=== PATIENT | female | born 1990 | race Caucasian/White ===

== ENCOUNTER 2020-06-06 16:28 | Emergency (ER) | payer OTHER, SELFPAY ==
--- NOTE | ~2020-06-06 | CT_ITS ---
EXAMINATION: CT abdomen pelvis w con EXAM DATE: 06/06/2020 21:56 INDICATION: Bilateral low abdominal pain for 3 days. TECHNIQUE: Spiral CT of the abdomen and pelvis was performed following intravenous injection of 100 m L Omnipaque 350. Axial, coronal and sagittal images were reviewed. The dose-length product (DLP) fo r this examination was 735.81 mGy-cm. The exposure was tailored according to patient size (auto mA e xposure control), and iterative reconstruction (ASIR) was used as additional dose reduction technique . There is no prior study for comparison. FINDINGS: Left adnexal region has somewhat serpiginous appearing fluid density region, possible hydro salpinx or pyosalpinx. Overall this left adnexal region measures about 3.2 x 4.7 cm. No adjacent fat stranding. Please clinically correlate. Consider follow-up nonemergent pelvic sonogram. Uterus is unr emarkable. The liver, spleen, adrenal glands and pancreas are unremarkable. Gallbladder is unremarkable. No bi liary obstruction. Portal and splenic veins are patent. Kidneys enhance symmetrically. There is no hydronephrosis. The bladder is unremarkable. There is no retroperitoneal or pelvic lymphadenopa thy. The appendix is normal. The stomach and small bowel are unremarkable. There is expected amount of c olonic stool. No free intraperitoneal gas. The heart is normal in size. There are no pericardial or pleural effusions. The lung bases are unremarkable. There are no osteoblastic or osteolytic les ions identified. IMPRESSION: 1. Serpiginous fluid density left adnexal region, possible hydrosalpinx or pyosalpinx if there is ce rvical motion tenderness. Clinical correlation. Consider follow-up nonemergent pelvic sonogram. 2. Otherwise unremarkable CT abdomen pelvis exam. Reviewed, dictated and finalized at location A. IMPRESSION: 1. Serpiginous fluid density left adnexal region, possible hydrosalpinx or pyo salpinx if there is cervical motion tenderness. Clinical correlation. Consider follow-up nonemergent pelvic sonogram. 2. Otherwise unremarkable CT abdomen pelvis exam.
[2020-06-06 17:03] VITALS: BP 134/87; PULSE 106; RESP 17; TEMP 35.8; O2SAT 97
[2020-06-06 17:27] LABS: Basophils Percent Auto 0.1 % (0.2-1.2); Eosinophils Absolute Auto 0.1 K/mm3 (0-0.3); Eosinophils Percent Auto 0.7 % (0-4.4); Hematocrit 38.1 % (37.0-47.0); Hemoglobin 13.1 g/dL (12.0-15.0); Immature Granulocyte Absolute 0.05 K/mm3 (0.00-0.031); Immature Granulocyte Percent A 0.4 % (0-0.5); Lymphocytes Absolute Auto 2.58 K/mm3 (0.9-3.2); Lymphocytes Percent Auto 18.6 % (18.3-44.2); Mean Corpuscular HGB Conc 34.4 g/dl (32-36); Mean Corpuscular Hemoglobin 28.9 pg (26-34); Mean Corpuscular Volume 84.1 fl (80-100); Mean Platelet Volume 10.2 fl (7.4-10.4); Monocytes Absolute Auto 0.5 K/mm3 (0.1-0.6); Monocytes Percent Auto 3.6 % (2.6-8.5); Neutrophils Absolute Auto 10.6 K/mm3 (1.3-6.7); Neutrophils Percent Auto 76.6 % (45.5-73.1); Platelet Count Result 318 k/mm3 (150-375); Red Blood Count 4.53 M/mm3 (4.2-5.4); Red Cell Distribution Width 12.5 % (11.5-14.5); White Blood Count 13.9 K/mm3 (4.5-10.0)
[2020-06-06 17:31] LABS: Add Urine Microscopic? YES; Appearance Urine Cloudy (Clear); Bacteria Urine Trace /hpf; Bilirubin Urine Negative (Negative); Blood Urine Negative (Negative); Color Urine Yellow (Yellow); Glucose Urine UA Negative (Negative); Ketones Urine Negative (Negative); Leukocyte Esterase Ur 1+ LEU/UL (Negative); Mucus Urine Moderate /lpf; Nitrate Urine Negative (Negative); Protein Urine 1+ mg/dL (Negative); Specific Grav Ur 1.024 (1.001-1.035); Squamous Epithelial Cell Urine Many /hpf (Few); Transitional Epi Cells Urine Rare /hpf (None Seen); Urobilinogen Urine Negative mg/dL (<2.0); WBC Urine 16-20 /hpf
[2020-06-06 17:40] LABS: Alanine Aminotransferase 9 U/L (4-35); Albumin Level 4.2 g/dL (3.5-5.1); Alkaline Phosphatase 82 U/L (38-126); Anion Gap 7 mmol/L (8-16); Aspartate Amino Transferase 17 U/L (14-36); Bilirubin,Total 0.7 mg/dL (0.2-1.3); Blood Urea Nitrogen 11 mg/dL (7-17); Calcium 9.4 mg/dL (8.4-10.2); Carbon Dioxide 23 mmol/L (22-30); Chloride 106 mmol/L (98-107); Estimated CRCL calculation 102 ml/min; Estimated Glomerular Filt Rate > 60; Glucose 90 mg/dL (65-105); Lipase 23 U/L (23-300); Sodium 136 mmol/L (137-145)
--- NOTE | 2020-06-06 21:14 | ED.GENADULT ---
HPI - General Adult General Chief complaint: Abdominal Pain Stated complaint: pressure and cramping in abd Time Seen by Provider: 06/06/20 20:23 History of Present Illness HPI narrative: Patient is a 30-year-old female who presents emerged part with chief complaint of abdominal pain. Patient reports for the last 3 days has had pain throughout her abdomen states it is nonlocalizing states that it is aching and worse with movement. Patient denies vaginal discharge denies vomiting denies diarrhea states that her she just recently finished her period Related Data Home Medications Medication Instructions Recorded Confirmed venlafaxine mg 06/06/20 Allergies Allergy/AdvReac Type Severity Reaction Status Date / Time No Known Allergies Allergy Unknown Unverified 06/24/14 18:27 Review of Systems Review of Systems: Narrative: A 10 system review of systems was completed on the patient and is negative except for what is stated in the HPI. Nursing and ancillary documentation was reviewed. PMFSH Social History Social History Gender identity (if verbalized by the patient): Female Comments Patient denies past medical history Social history the patient reports that she smokes cigarettes Exam Narrative: Exam Narrative: GENERAL: Well-appearing, well-nourished, and in no acute distress. HEAD: Normocephalic, atraumatic. EYES: PERRLA and EOMI. ENT: Nares clear, no rhinorrhea or epistaxis. Mucous membranes moist. NECK: Supple. CHEST: Clear to auscultation. No respiratory distress. HEART: Regular rate and rhythm. No murmur heard. Normal peripheral pulses. ABDOMEN: Soft, nontender, nondistended, normal active bowel sounds. EXTREMITIES: Normal range of motion. No edema. SKIN: Warm, dry, no rash. NEURO: No focal deficits. Alert and oriented x3. PSYCH: Normal mood and affect. Course Vital Signs Vital signs: Vital Signs Temperature 35.8 C L 06/06/20 17:03 Pulse Rate 106 H 06/06/20 17:03 Respiratory Rate 17 06/06/20 17:03 Blood Pressure 134/87 06/06/20 17:03 Pulse Oximetry 97 06/06/20 17:03 Temperature 35.8 C L 06/06/20 17:03 Pulse Rate 100 06/06/20 22:22 Respiratory Rate 18 06/06/20 22:22 Blood Pressure 113/75 06/06/20 22:22 Pulse Oximetry 98 06/06/20 22:22 Medical Decision Making Vital Signs Vital Signs: Vital Signs Temperature 35.8 C L 06/06/20 17:03 Pulse Rate 106 H 06/06/20 17:03 Respiratory Rate 17 06/06/20 17:03 Blood Pressure 134/87 06/06/20 17:03 Pulse Oximetry 97 06/06/20 17:03 Temperature 35.8 C L 06/06/20 17:03 Pulse Rate 100 06/06/20 22:22 Respiratory Rate 18 06/06/20 22:22 Blood Pressure 113/75 06/06/20 22:22 Pulse Oximetry 98 06/06/20 22:22 Lab Data Result diagrams: 06/06/20 17:08 06/06/20 17:08 Labs: Lab Results 06/06/20 06/06/20 06/06/20 Range/Units 17:08 17:08 17:08 WBC 13.9 H (4.5-10.0) K/mm3 RBC 4.53 (4.2-5.4) M/mm3 Hgb 13.1 (12.0-15.0) g/dL Hct 38.1 (37.0-47.0) % MCV 84.1 (80-100) fl MCH 28.9 (26-34) pg MCHC 34.4 (32-36) g/dl RDW 12.5 (11.5-14.5) % Plt Count 318 (150-375) k/mm3 MPV 10.2 (7.4-10.4) fl Immature Gran % (Auto) 0.4 (0-0.5) % Neut % (Auto) 76.6 H (45.5-73.1) % Lymph % (Auto) 18.6 (18.3-44.2) % Trigg % (Auto) 3.6 (2.6-8.5) % Eos % (Auto) 0.7 (0-4.4) % Baso % (Auto) 0.1 L (0.2-1.2) % Lymph # (Auto) 2.58 (0.9-3.2) K/mm3 Trigg # (Auto) 0.5 (0.1-0.6) K/mm3 Eos # (Auto) 0.1 (0-0.3) K/mm3 Baso # (Auto) 0.0 (0.0-0.1) K/mm3 Abs Immat Gran (auto) 0.05 H (0.00-0.031) K/mm3 Absolute Neuts (auto) 10.6 H (1.3-6.7) K/mm3 Absolute Nucleated RBC 0.0 (0.0-0.012) K/mm3 Nucleated RBC % 0.0 (0.0-0.2) % Sodium 136 L (137-145) mmol/L Potassium 4.0 (3.4-5.0) mmol/L Chloride 106 (98-107) mmol/L Carbon Dioxide 23 (22-30) mmol/L Anion Gap 7 L (8-16
[2020-06-06] MEDS: ONDANSETRON INJ 4 MG/2 ML VIAL IV PUSH (21:45)
[2020-06-06] MEDS: SODIUM CHLORIDE 0.9% IV 1,000 ML 999 ML IV CONT (21:45)
[2020-06-06 22:22] VITALS: BP 113/75; PULSE 100; RESP 18; O2SAT 98
== END 2020-06-06 23:00 | disposition home or self-care (01) ==
PROVIDERS: Emergency Medicine; Emergency Provider Emergency Medicine; PCP Family Medicine
DX: N30.00 Acute cystitis without hematuria (principal); F17.210 Nicotine dependence, cigarettes, uncomplicated
CPT/HCPCS: 36415; 74177; 80053; 81001; 81025; 83690; 85025; 87086; 87088; 87491; 87591; 96361; 96365; 96375; 99284; J0696; J2405; J7030; Q9967

== ENCOUNTER 2020-11-28 17:08 | Inpatient (IN) | payer OTHER, SELFPAY ==
--- NOTE | ~2020-11-28 | XR_ITS ---
XR abdomen obstructive series 11/29/2020 09:19 Indication: Possible small bowel obstruction Procedure: Supine and upright views of the abdomen Comparison: CT dated 11/28/2020 Findings: Nonobstructive bowel gas pattern. No free air. No abnormal calcifications. There is left ba silar atelectasis. Impression: 1: Nonobstructive bowel gas pattern. 2: Left basilar atelectasis. Reviewed, dictated and finalized at location A. Impression: 1: Nonobstructive bowel gas pattern. 2: Left basilar atelectasis.
--- NOTE | ~2020-11-28 | US_ITS ---
EXAMINATION: US pelvic complete w TV DATE: 11/29/2020 12:00 INDICATION: Lower abdominal pain TECHNIQUE: Multiple transabdominal and endovaginal sonographic images of the pelvis were obtained. COMPARISON: CT, 11/28/2020 FINDINGS: The uterus measures 7.4 x 4.7 x 4.5 cm. The endometrial complex measures 4 mm. The right ov juan measures 3.5 x 2.2 x 1.8 cm. The left ovary measures 2.6 x 1.5 x 2.2 cm. There is normal vascular flow in the ovaries. There are bilateral adnexal fluid collections. There is also fluid in the cul-d e-sac. IMPRESSION: 1. Cul-de-sac and bilateral adnexal fluid collections which could reflect small pelvic abscesses. Reviewed, dictated and finalized at location A.
--- NOTE | ~2020-11-28 | US_ITS ---
EXAMINATION: US abdomen limited DATE: 11/29/2020 11:59 INDICATION: Abdominal pain TECHNIQUE: Multiple grayscale and Doppler ultrasound images of the abdomen were obtained. COMPARISON: CT from yesterday FINDINGS: The head, body, and tail of the pancreas are normal. The liver is normal with normal echoge nicity and echotexture. No surface nodularity. Normal hepatopetal flow in the main portal vein. There is sludge in the nondistended gallbladder. No gallbladder wall thickening or pericholecystic fluid i s identified. The normal common bile duct measures 2 mm. There was no sonographic Paula sign. IMPRESSION: 1. Gallbladder sludge. Reviewed, dictated and finalized at location A. IMPRESSION: 1. Gallbladder sludge.
--- NOTE | ~2020-11-28 | CT_ITS ---
EXAMINATION: CT abdomen pelvis w con DATE: 11/28/2020 21:57 INDICATION: Left-sided abdominal pain, possible small bowel obstruction TECHNIQUE: Computed tomography (CT) of the abdomen and pelvis was performed with 100 cc Omnipaque 350 intravenous contrast. Automated exposure control and iterative reconstruction technique were employe d. Exam dose: 613.96 mGy-cm total exam DLP. COMPARISON: 06/06/2020 CT abdomen pelvis FINDINGS: Prominent multifocal discoid atelectasis is noted at the lung bases. Normal heart size. No pericardial or pleural effusion. There is some focal hepatic steatosis along the anterolateral aspect of the fissure for the ligamentu m teres. No hepatic space-occupying mass lesion. No bile duct dilatation. There is high density bile, sludge or stones within the dependent gallbladder. No gallbladder wall th ickening or pericholecystic fluid or fat stranding. Normal splenic size. No pancreatic mass lesion, calcification or ductal dilatation. Normal morphology of the adrenal glands. No renal mass lesion, urinary tract calculus or hydroureteronephrosis. Normal caliber of the abdominal aorta. There are shotty mesenteric, periaortic, aortocaval and iliac lymph nodes, likely reactive. No intraperitoneal or retroperitoneal or pelvic mass lesion or adenopat hy is noted otherwise. There is mild nonspecific fluid collection in the paracolic gutters, Morison's pouch and mesentery, a s well as adnexal areas and cul-de-sac. There is fat stranding of the mesentery. The proximal small bowel measures up to 2.6 mm caliber. There is thickening of the wall of multiple s mall bowel segments, with fluid distended small bowel and small bowel air-fluid levels. The appendix is not clearly delineated and may measure up to almost 9 mm diameter. Ruptured appendix is not excluded. Included skeletal structures are unremarkable. IMPRESSION: Nonspecific fluid collections in the hepatorenal space (Morison's pouch), pericolic gutt ers, adnexal areas and pelvic cul-de-sac There are probable reactive mesenteric, periaortic, aortocaval, iliac lymph nodes Diffusion diagnosis includes ruptured appendix, ruptured cyst, ruptured ectopic, inflammatory bowel d isease. Reviewed, dictated and finalized at Location A. Reviewed, dictated and finalized at location A. IMPRESSION: Nonspecific fluid collections in the hepatorenal space (Morison's pouch), pericolic gutters, adnexal areas and pelvic cul-de-sac There are probable reactive mesenteric, periaortic, aortocaval, iliac lymph nod es Diffusion diagnosis includes ruptured appendix, ruptured cyst, ruptured ectopic , inflammatory bowel disease.
[2020-11-28 17:16] VITALS: BP 120/83; PULSE 113; RESP 16; TEMP 35.8; O2SAT 99
[2020-11-28 17:35] LABS: Basophils Percent Auto 0.1 % (0.2-1.2); Eosinophils Absolute Auto 0.1 K/mm3 (0-0.3); Eosinophils Percent Auto 0.3 % (0-4.4); Hematocrit 38.6 % (37.0-47.0); Hemoglobin 12.8 g/dL (12.0-15.0); Immature Granulocyte Absolute 0.06 K/mm3 (0.00-0.031); Immature Granulocyte Percent A 0.4 % (0-0.5); Lymphocytes Absolute Auto 2.01 K/mm3 (0.9-3.2); Lymphocytes Percent Auto 13.7 % (18.3-44.2); Mean Corpuscular HGB Conc 33.2 g/dl (32-36); Mean Corpuscular Hemoglobin 29.4 pg (26-34); Mean Corpuscular Volume 88.5 fl (80-100); Mean Platelet Volume 10.3 fl (7.4-10.4); Monocytes Absolute Auto 0.5 K/mm3 (0.1-0.6); Monocytes Percent Auto 3.3 % (2.6-8.5); Neutrophils Absolute Auto 12.1 K/mm3 (1.3-6.7); Neutrophils Percent Auto 82.2 % (45.5-73.1); Platelet Count Result 319 k/mm3 (150-375); Red Blood Count 4.36 M/mm3 (4.2-5.4); Red Cell Distribution Width 13.1 % (11.5-14.5); White Blood Count 14.7 K/mm3 (4.5-10.0)
[2020-11-28 17:52] LABS: Add Urine Microscopic? YES; Appearance Urine Cloudy (Clear); Bilirubin Urine 1+ (Negative); Blood Urine 3+ (Negative); Color Urine Yellow (Yellow); Glucose Urine UA Negative (Negative); Ketones Urine 2+ mg/dL (Negative); Leukocyte Esterase Ur 3+ LEU/UL (Negative); Mucus Urine Rare /lpf; Nitrate Urine Negative (Negative); Protein Urine 2+ mg/dL (Negative); Squamous Epithelial Cell Urine Many /hpf (Few); WBC Urine >75 /hpf
[2020-11-28 17:53] LABS: Alanine Aminotransferase 10 U/L (4-35); Albumin Level 3.8 g/dL (3.5-5.1); Alkaline Phosphatase 82 U/L (38-126); Anion Gap 13 mmol/L (8-16); Aspartate Amino Transferase 17 U/L (14-36); Bilirubin,Total 0.5 mg/dL (0.2-1.3); Blood Urea Nitrogen 9 mg/dL (7-17); Carbon Dioxide 21 mmol/L (22-30); Chloride 105 mmol/L (98-107); Estimated CRCL calculation 114 ml/min; Estimated Glomerular Filt Rate > 60; Glucose 90 mg/dL (65-110); Lipase 12 U/L (23-300); Potassium 3.4 mmol/L (3.4-5.0); Sodium 139 mmol/L (137-145)
[2020-11-28 18:06] LABS: Specific Grav Ur 1.032 (1.001-1.035)
[2020-11-28 20:16] VITALS: BP 114/82; PULSE 96; RESP 18; O2SAT 99
--- NOTE | 2020-11-28 20:50 | ED.ABDPAIN ---
HPI - Abdominal Pain General Chief Complaint: Abdominal Pain <Tristen Langford MD - Last Filed: 11/28/20 21:13> Stated Complaint: Abd Pain <Tristen Langford MD - Last Filed: 11/28/20 21:13> Time Seen by Provider: 11/28/20 20:22 <Tristen Langford MD - Last Filed: 11/28/20 21:13> Source: patient <Tristen Langford MD - Last Filed: 11/28/20 21:13> Mode of arrival: ambulatory <Tristen Langford MD - Last Filed: 11/28/20 21:13> History of Present Illness HPI narrative: 30-year-old female She was just discharged from [place] after being admitted a couple days ago for abdominal pain Her understanding is that she had a partial small bowel obstruction and a urinary tract infection She is positive she did not have an NG tube placed She was discharged on Levaquin and Flagyl which she is taking She came here today because she still has nausea and vomiting and some abdominal pain which is more on the left side and does not feel like her stay there did her much good She has had a bowel movement without relief of her symptoms She does not have a fever, she has no blood in her stool or emesis, and she really does not have any urinary symptoms either at this time No history of any prior abdominal operations <Tristen Langford MD - Last Filed: 11/28/20 21:13> Related Data Home Medications: Home Medications Medication Instructions Recorded Confirmed venlafaxine mg 06/06/20 <Tristen Langford MD - Last Filed: 11/28/20 21:13> Allergies/Adverse Reactions: Allergies Allergy/AdvReac Type Severity Reaction Status Date / Time No Known Allergies Allergy Unknown Unverified 06/24/14 18:27 <Tristen Langford MD - Last Filed: 11/28/20 21:13> Review of Systems Review of Systems: All systems reviewed & are unremarkable except as noted in HPI and below <Tristen Langford MD - Last Filed: 11/28/20 21:13> Constitutional: Constitutional: Reports no additional constitutional complaints, Denies chills, Denies fever(s) and Denies headache(s) <Tristen Langford MD - Last Filed: 11/28/20 21:13> Eyes: Eyes: Reports no additional eye complaints and Denies change in vision <Tristen Langford MD - Last Filed: 11/28/20 21:13> ENT: Denies headache(s) and Denies sore throat <Tristen Langford MD - Last Filed: 11/28/20 21:13> Cardiovascular: Cardiovascular: Denies chest pain and Denies dyspnea <Tristen Langford MD - Last Filed: 11/28/20 21:13> Respiratory: Respiratory: Denies cough and Denies dyspnea <Tristen Langford MD - Last Filed: 11/28/20 21:13> Gastrointestinal: Gastrointestinal: Reports abdominal pain, Denies diarrhea, Reports nausea and Reports vomiting <Tristen Langford MD - Last Filed: 11/28/20 21:13> Genitourinary: Genitourinary: Denies abnormal vaginal bleeding, Denies urinary frequency, Denies dysuria and Denies flank pain <Tristen Langford MD - Last Filed: 11/28/20 21:13> Musculoskeletal: Musculoskeletal: Denies deformity, Denies arthralgias, Denies joint swelling and Denies numbness <Tristen Langford MD - Last Filed: 11/28/20 21:13> Integumentary/Breasts: Skin/Breast: Denies rash and Denies wounds <Tristen Langford MD - Last Filed: 11/28/20 21:13> Neurologic: Denies headache(s), Denies focal weakness and Denies numbness <Tristen Langford MD - Last Filed: 11/28/20 21:13> [facility] Social History Social History: Social History Gender identity (if verbalized by the patient): Female <Tristen Langford MD - Last Filed: 11/28/20 21:13> Exam Const: General: cooperative and no acute distress <Tristen Langford MD - Last Filed: 11/28/20 21:13> Orientation/consciousness: patient oriented x3 (alert) <Tristen Langford MD - Last Filed: 11/28/20 21:13> HENMT: Head: normal to inspection, normocephalic and atraumatic <Tristen Langford MD - Last Filed: 11/28/20 21:13> Ears: external ears normal <Tristen Langford MD - Last Filed: 11/28/20 21:13> General nose exam: no epistax
--- NOTE | 2020-11-28 21:03 | PC.NURSE ---
Per SANDRA Langford, obtain a new urine analysis by straight catheter due to contaminated specimen.
--- NOTE | 2020-11-28 21:33 | PC.NURSE ---
Pt straight cath attempt was unsuccessful. Bladder scanned for 67 mL. Tolerated well, sterile field maintained.
--- NOTE | 2020-11-28 21:45 | PC.NURSE ---
Patient to radiology.
[2020-11-28] MEDS: ONDANSETRON INJ 4 MG/2 ML VIAL IV PUSH (22:13)
[2020-11-28] MEDS: LACTATED RINGERS 1,000 ML 999 ML IV CONT (22:15)
[2020-11-29 00:43] VITALS: BP 105/68; PULSE 79; RESP 16; TEMP 37.2; O2SAT 100
--- NOTE | 2020-11-29 01:13 | ADMGEN ---
This patient, Armin Simmons, was admitted to Medical Room 344-01. Patient/family oriented to hospital policies and general routines including ID bracelet, bed and alarms, visiting hours, pain management, procedures, bathroom and other care routines, personal items, smoking policy, room service/diet, and visiting hours. Information on how to activate the Rapid Response Team has been discussed. Patient/Family are encouraged to report perceived risks to care and to ask questions if they do not understand what they are told or what they should do.
[2020-11-29 01:14] VITALS: BMI 31.0
[2020-11-29] MEDS: LACTATED RINGERS 1,000 ML 125 ML IV CONT (01:28)
--- NOTE | 2020-11-29 02:24 | PM.IMHP ---
H&P: HPI History of Present Illness Date/Time: 11/29/20 02:24 Chief Complaint: Abdominal pain Narrative: This is a 30-year-old female with past medical history significant for depression, tobacco dependence she smokes 1 pack a day. She presents to the emergency room due to worsening abdominal pain which await initially was localized to the epigastric area and now is at the left lower quad with nausea and vomiting ,unable to eat, has not been smoking as a result of these, poor appetite after presenting to [facility] emergency room where she had a CT of abdomen and pelvis performed and discharged home on levofloxacin metronidazole and doxycycline this was 2 days ago. She denies any fevers any rigors any chills any vaginal discharge no pain or burning with urination, no cough no sputum production, had some diarrhea. Preliminary workup significant was significant for urinalysis with numerous wbc's review of CT of abdomen and pelvis performed at outside hospital showed multiple nonspecific findings. Decision has been made to place the patient in observation. Review of Systems Review of Systems: Abdominal pain Constitutional: Constitutional: Denies chills, Denies fatigue, Denies fever(s), Denies lethargy, Denies night sweats, Reports poor appetite and Denies weakness Eyes: Eyes: Denies change in vision ENT: Denies dysphagia, Denies nasal congestion, Denies nasal discharge, Denies nasal obstruction and Denies odynophagia Cardiovascular: Cardiovascular: Denies chest pain, Denies irregular heart rhythm, Denies claudication, Denies lightheadedness, Denies radiating jaw, neck or arm pain, Denies palpitations, Denies dyspnea on exertion and Denies orthopnea Respiratory: Respiratory: Denies cough, Denies dyspnea and Denies wheezing Gastrointestinal: Gastrointestinal: Reports abdominal pain, Denies melena, Denies bloating, Denies coffee ground emesis, Denies GI cramping, Denies dyspepsia, Reports nausea and Reports vomiting Genitourinary: Genitourinary: Reports no additional female genitourinary complaints Musculoskeletal: Musculoskeletal: Reports no additional musculoskeletal complaints Integumentary/Breasts: Skin/Breast: Reports system reviewed and no additional complaints, except as docu Neurologic: Reports system reviewed and no additional complaints, except as documented Psychiatric: Psychiatric: Reports no additional psychiatric complaints Endocrine: Endocrine: Reports no additional endocrine complaints Hematologic/Lymphatic: Hematologic/Lymphatic: Reports no additional hematologic/lymphatic complaints Allergic/Immunologic: Allergic/Immunologic: Reports no additional allergic/immunologic complaints PMFSH Social History Social History Smoking packs per day: 1 Smoking cigarettes per day: 20.0 Years smoked: 10 Smoking pack-years: 10.00 Smoking status: Current every day smoker Tobacco type: cigarettes Second hand tobacco smoke exposure: No Alcohol intake: never Substance use: never Substance use type: does not use Gender identity (if verbalized by the patient): Female Spiritual care concerns: No Meds Home Medications and Allergies Home Medications Medication Instructions Recorded Confirmed Type doxycycline hyclate 100 mg PO DAILY #14 cap 06/06/20 11/29/20 Rx venlafaxine 75 mg PO BID 06/06/20 11/29/20 History levofloxacin 500 mg PO DAILY 11/29/20 11/29/20 History metronidazole 500 mg PO TID 11/29/20 11/29/20 History Allergies Allergy/AdvReac Type Severity Reaction Status Date / Time No Known Allergies Allergy Unknown Unverified 11/29/20 01:44 Vital Signs Vital Signs - 24 hr 11/28/20 17:16 11/28/20 20:16 11/29/20 00:43 Temperature 96.5 F L 98.9 F Pulse Rate 113 H 96 79 Respiratory Rate 16 18 16 Blood Pressure 120/83 114/82 105/68 Pulse Oximetry 99 99 100 Exam Narrative: Laying in izzy Const: General: cooperative, com
[2020-11-29 05:06] VITALS: BP 112/74; PULSE 84; RESP 16; TEMP 36.8; O2SAT 98
[2020-11-29 05:47] LABS: Basophils Percent Auto 0.1 % (0.2-1.2); Eosinophils Absolute Auto 0.1 K/mm3 (0-0.3); Eosinophils Percent Auto 0.7 % (0-4.4); Hematocrit 31.7 % (37.0-47.0); Hemoglobin 10.6 g/dL (12.0-15.0); Immature Granulocyte Absolute 0.06 K/mm3 (0.00-0.031); Immature Granulocyte Percent A 0.5 % (0-0.5); Lymphocytes Absolute Auto 1.85 K/mm3 (0.9-3.2); Lymphocytes Percent Auto 15.2 % (18.3-44.2); Mean Corpuscular HGB Conc 33.4 g/dl (32-36); Mean Corpuscular Hemoglobin 29.5 pg (26-34); Mean Corpuscular Volume 88.3 fl (80-100); Monocytes Absolute Auto 0.5 K/mm3 (0.1-0.6); Monocytes Percent Auto 3.8 % (2.6-8.5); Neutrophils Absolute Auto 9.7 K/mm3 (1.3-6.7); Neutrophils Percent Auto 79.7 % (45.5-73.1); Platelet Count Result 230 k/mm3 (150-375); Red Blood Count 3.59 M/mm3 (4.2-5.4); Red Cell Distribution Width 12.9 % (11.5-14.5); White Blood Count 12.2 K/mm3 (4.5-10.0)
[2020-11-29 06:00] LABS: Alanine Aminotransferase 6 U/L (4-35); Alkaline Phosphatase 61 U/L (38-126); Anion Gap 9 mmol/L (8-16); Aspartate Amino Transferase 14 U/L (14-36); Bilirubin,Total 0.2 mg/dL (0.2-1.3); Blood Urea Nitrogen 8 mg/dL (7-17); Calcium 8.3 mg/dL (8.4-10.2); Carbon Dioxide 22 mmol/L (22-30); Chloride 104 mmol/L (98-107); Estimated CRCL calculation 134 ml/min; Estimated Glomerular Filt Rate > 60; Glucose 124 mg/dL (65-110); Potassium 3.1 mmol/L (3.4-5.0); Sodium 135 mmol/L (137-145)
[2020-11-29] MEDS: LACTATED RINGERS 1,000 ML 75 ML IV CONT (09:44)
[2020-11-29] MEDS: POTASSIUM CHLORIDE 20 MEQ TABLET 40 MEQ PO (09:45)
--- NOTE | 2020-11-29 10:57 | PM.CNGS ---
Assessment and Plan Assessment and plan (1) Abnormal abdominal CT scan: Code(s): R93.5 - Abnormal findings on diagnostic imaging of other abdominal regions, including retroperitoneum Status: Acute Assessment and Plan: CT scan reviewed with Dr. Belle and the Radiologist. There are nonspecific fluid collections in the hepatorenal space, pericolic gutters, adnexal areas, and pelvic cul-de-sac. Gallbladder had evidence of possible sludge but no wall thickening or pericholecystic fluid. There is thickening of the wall of multiple small bowel segments, with fluid distended small bowel and small bowel air-fluid levels. The appendix appears to be normal caliber without any inflammatory stranding around this to suggest the fluid is associated to perforated acute appendicitis. Her clinical presentation also does not correlate with appendicitis. There is however, evidence of a hydrosalpinx in the left adnexal region with serosal enhancement in the pelvis, suggesting PID. The small bowel abnormalities and fluid collections noted could also be secondary to this. We ordered abdominal films this morning that now suggest a nonobstructive bowel gas pattern. This does not appear to be a small bowel obstruction. We will order a RUQ ultrasound to further assess the gallbladder, and rule this out as being any potential cause for her abdominal pain, although I have low suspicion for such. We also ordered a pelvic ultrasound. We would recommend a consultation for Gynecology for their evaluation and recommendations. I will stop the IV Vancomycin and defer any further adjustments of the antibiotic to the Hospitalist/MARKET RISK MANAGER. Okay to start advancing her diet as tolerated from our standpoint. Trend labs. Thank you for allowing us to see the patient in consultation and we will continue to follow along with you. (2) Abdominal pain: Code(s): R10.9 - Unspecified abdominal pain Status: Acute Assessment and Plan: Abdominal films this morning showed a nonobstructive bowel gas pattern. Her exam does not correlate clinically with a small bowel obstruction either. Okay to start advancing her diet when okay with other services. Abdominal pain improving and now localizing to the LLQ. Nausea improving with no further vomiting. Continue prn IV analgesics and antiemetics. This appears to most likely be related to PID. (3) PID (pelvic inflammatory disease): Code(s): N73.9 - Female pelvic inflammatory disease, unspecified Status: Acute Assessment and Plan: Discussed this with the Hospitalist. (See plan above). Would recommend Gynecology consultation. Will stop IV Vancomycin. Abx per Hospitalist/MARKET RISK MANAGER. To note, she was treated for PID in May from the ER with doxycycline. She had a +G/C but I cannot tell that she received any other abx additionally to her doxy. (4) Tobacco dependence: Code(s): F17.200 - Nicotine dependence, unspecified, uncomplicated Status: Acute Assessment and Plan: Encouraged cessation. Additional Plan I have discussed the patient's case and plan of care with Dr. Belle. History of Present Illness Consult details Consult date: 11/29/20 Reason for consult: abdominal pain Requesting physician: Kasey Contreras MD Narrative: This is a 30-year-old female that is being seen this morning on the medical floor for surgical consultation for abdominal pain with abnormalities of the CT scan of the abdomen and pelvis. Her symptoms started with a sudden onset of generalized abdominal pain Friday night, 4 days ago, around 8:00 pm while sitting in a chair at home. She reports having spaghetti for dinner a few hours prior to the onset of symptoms. The pain progressively worsened over the night and she developed nausea and had multiple episodes of non-bloody, non-bilious vomiting. Friday morning, she presented to [facility] ER for evaluation. They had performed a CT scan of the abdomen and pelvis that showed the sm
--- NOTE | 2020-11-29 11:11 | P.PNIM_ITS ---
Progress Note: A&P Assessment and Plan (1) Abdominal pain: Code(s): R10.9 - Unspecified abdominal pain Status: Acute Assessment and Plan: Diffuse abdominal pain with nonspecific CT scan findings, see below. * In light of leukocytosis, will proceed with broad-spectrum antibiotics. Continue vanc and Zosyn * Supportive care. Analgesics antiemetics as needed. * NPO diet at this time * IV fluids while NPO; LR at 75 ml/hr * Appreciate general surgery consultation * She was admitted a [facility] [place] from 11/26-11/27, initially for concerns of small bowel obstruction. She reports this was ruled out by general surgeon at [facility] and was treated for stomach infection that she is unsure of details on. She had been taking Flagyl and Levaquin as an outpatient prior to presentation at this facility (2) Abnormal abdominal CT scan: Code(s): R93.5 - Abnormal findings on diagnostic imaging of other abdominal regions, including retroperitoneum Status: Acute Assessment and Plan: CT scan with nonspecific fluid collections in hepatic or renal space, paracolic gutters, adnexal areas and pelvic cul-de-sac as well as reactive mesenteric, periaortic, aortocaval, iliac lymph nodes with broad differential including ruptured appendix, ruptured cyst, ruptured ectopic, IBD * Bedside test in ED negative. Quantitative bHCG is pending * Transvaginal pelvic ultrasound and abdominal ultrasound ordered, awaiting completion * Pelvic infection considered, history of gonorrhea and chlamydia in May with concerns for possible PID based on CT. Denies new sexual partners. No vaginal discharge. * Will proceed with OUTSOLE MOLDER consultation. * Appreciate general surgery consultation (3) Leukocytosis: Code(s): D72.829 - Elevated white blood cell count, unspecified Status: Acute Assessment and Plan: [place] 06369 at outside hospital [place] [address] [place]. She remains afebrile * Infectious process seems likely given reactive abdominal lymphadenopathy and diffuse abdominal pain. * Does not appear she has received steroids at any point during either hospitalization * Continue with broad spectrum abx as described above. * Monitor CBC (4) Abnormal urinalysis: Code(s): R82.90 - Unspecified abnormal findings in urine Status: Acute Assessment and Plan: UA with 3+ leuk esterase and >75 WBC, however with many squamous cells, concerning for contamination. She does endorse very mild dysuria. * Urine culture is pending * Continue with broad-spectrum antibiotics (5) Tobacco dependence: Code(s): F17.200 - Nicotine dependence, unspecified, uncomplicated Status: Acute Assessment and Plan: She smokes 1 pack per day. * Continue to encourage smoking cessation * Declines need for nicotine patch at this time (6) Hypokalemia: Code(s): E87.6 - Hypokalemia Status: Acute Assessment and Plan: Potassium 3.1 today. Likely secondary to poor p.o. intake as well as nausea and vomiting. * Supplement with 40 mEq p.o. KCl * Monitor BMP daily. Check magnesium. Subjective Date/time seen: 11/29/20 11:11 Interval history: Date of service: 11/29/2020 Armin Simmons is a healthy 30-year-old female who is seen in follow-up for diffuse abdominal pain. She is feeling maybe just a little bit better today. She reports diffuse, constant aching abdominal pain that she rates as 6/10. She denies bloating. She
--- NOTE | 2020-11-29 11:11 | PM.IMPN ---
Progress Note: A&P Assessment and Plan (1) Abdominal pain: Code(s): R10.9 - Unspecified abdominal pain Status: Acute Assessment and Plan: Diffuse abdominal pain with nonspecific CT scan findings, see below. In light of leukocytosis, will proceed with broad-spectrum antibiotics. Continue vanc and Zosyn Supportive care. Analgesics antiemetics as needed. NPO diet at this time IV fluids while NPO; LR at 75 ml/hr Appreciate general surgery consultation She was admitted a [facility] from 11/26-11/27, initially for concerns of small bowel obstruction. She reports this was ruled out by general surgeon at [place] and was treated for stomach infection that she is unsure of details on. She had been taking Flagyl and Levaquin as an outpatient prior to presentation at this facility (2) Abnormal abdominal CT scan: Code(s): R93.5 - Abnormal findings on diagnostic imaging of other abdominal regions, including retroperitoneum Status: Acute Assessment and Plan: CT scan with nonspecific fluid collections in hepatic or renal space, paracolic gutters, adnexal areas and pelvic cul-de-sac as well as reactive mesenteric, periaortic, aortocaval, iliac lymph nodes with broad differential including ruptured appendix, ruptured cyst, ruptured ectopic, IBD Bedside test in ED negative. Quantitative bHCG is pending Transvaginal pelvic ultrasound and abdominal ultrasound ordered, awaiting completion Pelvic infection considered, history of gonorrhea and chlamydia in May with concerns for possible PID based on CT. Denies new sexual partners. No vaginal discharge. Will proceed with TRUCK CATERER consultation. Appreciate general surgery consultation (3) Leukocytosis: Code(s): D72.829 - Elevated white blood cell count, unspecified Status: Acute Assessment and Plan: She reports white count was 17889 at outside hospital [place] [address] today. She remains afebrile Infectious process seems likely given reactive abdominal lymphadenopathy and diffuse abdominal pain. Does not appear she has received steroids at any point during either hospitalization Continue with broad spectrum abx as described above. Monitor CBC (4) Abnormal urinalysis: Code(s): R82.90 - Unspecified abnormal findings in urine Status: Acute Assessment and Plan: UA with 3+ leuk esterase and >75 WBC, however with many squamous cells, concerning for contamination. She does endorse very mild dysuria. Urine culture is pending Continue with broad-spectrum antibiotics (5) Tobacco dependence: Code(s): F17.200 - Nicotine dependence, unspecified, uncomplicated Status: Acute Assessment and Plan: She smokes 1 pack per day. Continue to encourage smoking cessation Declines need for nicotine patch at this time (6) Hypokalemia: Code(s): E87.6 - Hypokalemia Status: Acute Assessment and Plan: Potassium 3.1 today. Likely secondary to poor p.o. intake as well as nausea and vomiting. Supplement with 40 mEq p.o. KCl Monitor BMP daily. Check magnesium. Subjective Date/time seen: 11/29/20 11:11 Interval history: Date of service: 11/29/2020 Armin Simmons is a healthy 30-year-old female who is seen in follow-up for diffuse abdominal pain. She is feeling maybe just a little bit better today. She reports diffuse, constant aching abdominal pain that she rates as 6/10. She denies bloating. She has not had any episodes of emesis today, last emesis yesterday that she reported was watery. Nausea has improved today. Denies diarrhea. Her last bowel movement was 4 days ago. She denies fever or chills. She reports dark urine and some mild dysuria. She denies vaginal discharge. Denies pelvic pain, suprapubic pain, flank pain, or back pain. Denies dizziness, lightheadedness, shortness breath, cough, chest pain. Review of Sys
[2020-11-29 11:57] LABS: Beta HCG Quantitative < 2.39 mIU/ML
[2020-11-29 14:00] VITALS: BP 116/56; PULSE 75; RESP 18; TEMP 36.8; O2SAT 100
[2020-11-29] MEDS: cefoTEtan DISODIUM INJ 2 GM in DEXTROSE 5% IN WATER 50 ML IVPB (19:33)
--- NOTE | 2020-11-29 19:55 | WPDCN ---
Assessment and Plan Assessment and plan (1) Tubo-ovarian abscess: Code(s): N70.93 - Salpingitis and oophoritis, unspecified Status: Acute Additional Plan - Bilateral TOA's noted on CT and LEATHER STITCHER US - IR consulted; TOA's not large enough for drainage - Cefotetan 2g IV q12h + Doxycycline 100mg IV q12h for minimum of 48 hours - Pt clinically improved with decreased pain, able to tolerate PO, down trending WBC, afebrile - continue daily CBC - Bowel regimen to be started: colace 100mg BID + miralax daily PRN until BM - Possible d/c home in 48hrs if WBC continues to downtrend and pt clinically stable (ideally WBC <10) - Will be discharged home on doxycycline 100mg PO BID and metronidazole 500mg PO BID x 14 days - Will continue rounding daily until discharge home - Pt to f/u in clinic 2wks after discharge home HPI Data of Consult Date/Time: 11/29/20 19:55 Requesting Physician: Irena Thornton PA-C Primary Care Provider: Kinjal Spicer, STACKER DRIVER Consult Narrative Narrative: Armin Simmons is a 30 yo P2002, LMP 11/2020 who is admitted for TOA. She was admitted to [facility] for concerns of SBO w/ significant pain, nausea and vomiting on the AM of 11/26. She was discharged home 11/27 on PO levoquin and flagyl. Her WBC was 24. She has been afebrile. Her LLQ pain worsened and she re-presented to [facility]. CT and LEATHER STITCHER US show bilateral TOA's. Her WBC count is now down to 12. She has been afebrile. She reports today is the first day that she finally feels better. She has tolerated regular diet w/o N/V. She reports irregular spotting, denies overt vaginal discharge. She has not had a BM since 11/24, but does report passing gas. She was recently seen in clinic 10/2020 where pap smear was collected and she tested positive for chlamydia and trichomonas. She reports that she completed her antibiotics for that. She states that her partner was also treated. They did not have intercourse until both were treated. Review of Systems Review of Systems: All systems reviewed & are unremarkable except as noted in HPI and below (HPI) PMFSH Past Medical History Medical History History of PID Tobacco dependence Surgical History Surgical History No significant past surgical history Family History Family History Other No pertinent family history Social History Social History Smoking packs per day: 1 Smoking cigarettes per day: 20.0 Years smoked: 10 Smoking pack-years: 10.00 Smoking status: Current every day smoker Tobacco type: cigarettes Second hand tobacco smoke exposure: No Alcohol intake: never Substance use: never Substance use type: does not use Gender identity (if verbalized by the patient): Female Spiritual care concerns: No Meds Home Medications and Allergies Home Medications Medication Instructions Recorded Confirmed Type doxycycline hyclate 100 mg PO DAILY #14 cap 06/06/20 11/29/20 Rx venlafaxine 75 mg PO BID 06/06/20 11/29/20 History levofloxacin 500 mg PO DAILY 11/29/20 11/29/20 History metronidazole 500 mg PO TID 11/29/20 11/29/20 History Allergies Allergy/AdvReac Type Severity Reaction Status Date / Time No Known Allergies Allergy Unknown Unverified 11/29/20 01:44 Vital Signs Vital Signs - 24 hr 11/28/20 20:16 11/29/20 00:43 11/29/20 05:06 Temperature 37.2 C 36.8 C Pulse Rate 96 79 84 Respiratory Rate 18 16 16 Blood Pressure 114/82 105/68 112/74 Pulse Oximetry 99 100 98 11/29/20 14:00 Temperature 36.8 C Pulse Rate 75 Respiratory Rate 18 Blood Pressure 116/56 L Pulse Oximetry 100 Exam Const: General: cooperative, healthy appearing, comfortable and no acute distress Nutritional Appearance: obese Resp: Effort & Inspection: normal respiratory eff
[2020-11-29 20:20] VITALS: BP 119/67; PULSE 81; RESP 18; TEMP 37.1; O2SAT 98
[2020-11-29] MEDS: DOCUSATE SODIUM 100 MG CAPSULE PO (20:23)
[2020-11-30 05:04] VITALS: BP 101/59; PULSE 79; RESP 16; TEMP 36.4; O2SAT 96
[2020-11-30] MEDS: cefoTEtan DISODIUM INJ 2 GM in DEXTROSE 5% IN WATER 50 ML IVPB ×2 (05:07→18:26)
[2020-11-30 06:09] LABS: Hematocrit 32.6 % (37.0-47.0); Hemoglobin 10.7 g/dL (12.0-15.0); Mean Corpuscular HGB Conc 32.8 g/dl (32-36); Mean Corpuscular Hemoglobin 28.7 pg (26-34); Mean Corpuscular Volume 87.4 fl (80-100); Mean Platelet Volume 10.1 fl (7.4-10.4); Platelet Count Result 258 k/mm3 (150-375); Red Blood Count 3.73 M/mm3 (4.2-5.4); Red Cell Distribution Width 12.7 % (11.5-14.5); White Blood Count 8.4 K/mm3 (4.5-10.0)
[2020-11-30 06:32] LABS: Anion Gap 9 mmol/L (8-16); Blood Urea Nitrogen 3 mg/dL (7-17); Calcium 8.2 mg/dL (8.4-10.2); Carbon Dioxide 25 mmol/L (22-30); Chloride 105 mmol/L (98-107); Estimated CRCL calculation 134 ml/min; Estimated Glomerular Filt Rate > 60; Glucose 96 mg/dL (65-110); Magnesium 1.9 mg/dL (1.6-2.3); Potassium 3.4 mmol/L (3.4-5.0); Sodium 139 mmol/L (137-145)
--- NOTE | 2020-11-30 07:44 | PM.GYNPNOP ---
G[employer]ARTER [employer] RANGER - A/P Assessment and plan (1) Tubo-ovarian abscess: Code(s): N70.93 - Salpingitis and oophoritis, unspecified Status: Acute Assessment and Plan: - Cefoxitin 500mg IM once ordered for gonorrhea infection per CDC guidelines (doxycycline 100mg BID x7d will treat the chlamydia infection) - Continue Cefotetan 2g IV q12h + Doxycycline 100mg IV q12h for total of 48 hours - Pt clinically improved with decreased pain, able to tolerate PO, down trending WBC, afebrile - Continue bowel regimen: colace 100mg BID + miralax daily PRN until BM - Possible d/c home Friday evening vs Friday AM (depending when abx are complete) - Will be discharged home on doxycycline 100mg PO BID and metronidazole 500mg PO BID x 14 days - Pt to f/u in clinic 2wks after discharge home - Patients significant other needs to be tested and treated for STIs otherwise pt will continue to be re-infected. He can go to his PCP, health department, or [facility] Time Spent With Patient Time: Total time spent is greater than 50% in coordination of care (as documented) at patient's floor/unit and/or counseling patient: Time with patient: less than 15 minutes [employer]ANGER- PN:Subj Post-Op Subjective Date/time seen: 11/30/20 07:44 Interval history: Date of service: 11/29/2020 Armin reports doing much better today; slept well overnight. She reports her abdominal pain is much improved. No fevers. She has tolerated regular diet. She is voiding and passing gas. No BM yet. She is ambulating around the room. She has continued vaginal bleeding, denies vaginal discharge. Her WBC is down to 8.4 today. Her gonorrhea and chlamydia did come back positive though. She denies CP, SOB, DENNY, N, V, dysuria, fever, chills. Review of Systems Review of Systems: All systems reviewed & are unremarkable except as noted in HPI and below (HPI) Exam Const: General: cooperative, healthy appearing, comfortable and no acute distress Nutritional Appearance: obese Resp: Effort & Inspection: normal respiratory effort Auscultation: clear to auscultation bilaterally Cardio: Rate: regular rate GI: Inspection: normal to inspection and non-distended GI Palp: Yes abdominal tenderness (mild pelvic, bilaterally), Yes Soft to palpation and No Guarding due to palpation present (GI) Auscultation: normal bowel sounds Skin: General skin exam: normal color Neuro: General: oriented to person Extrem: General: normal to inspection Psych: Appearance: grossly normal Affect: normal affect Attitude: cooperative [employer]ARTER [employer] RANGER - PN: Obj Data Vital Signs Vital Signs: Vital Signs - 24 hr 11/29/20 14:00 11/29/20 20:20 11/30/20 05:04 Temperature 36.8 C 37.1 C 36.4 C Pulse Rate 75 81 79 Respiratory Rate 18 18 16 Blood Pressure 116/56 L 119/67 101/59 L Pulse Oximetry 100 98 96 Intake/Output Intake/Output: Intake & Output 11/27/20 11/28/20 11/29/20 11/30/20 23:59 23:59 23:59 23:59 Intake Total 2950 300 Output Total 1100 400 Balance 1850 -100 Meds/Results Medications: Active Medications Generic Name Dose Route Start Last Admin Trade Name Freq PRN Reason Stop Dose Admin Docusate Sodium 100 mg 11/29/20 21:00 11/29/20 20:23 Docusate Sodium 100 Mg Capsule PO 100 mg Q12HR VINAYAK Administration Lactated Ringer's 1,000 mls @ 75 mls/hr 11/28/20 23:45 11/29/20 09:44 Lr - Lactated Ringers Iv IV CONT 75 mls/hr .[id number] VINAYAK Administration Doxycycline Hyclate 100 mg in 100 mls @ 100 mls/hr 11/29/20 15:00 11/30/20 03:01 Vibramycin 100 Mg/D5w 100 Ml IVPB Infused Q12H VINAYAK Infusion Cefotetan Disodium 2 gm/ 50 mls @ 100 mls/hr 11/29/20 18:00 11/30/20 05:37 Dextrose IVPB Infused Q12H VINAYAK Infusion Morphine Sulfate 4 mg 11/28/20 23:56 Morphine Sulfate (*Crx) 4 Mg/Ml Inj IV PUSH Q2H PRN Pain Rated 7-10 Ondansetron HCl 4 mg 11/28/20 23:56 Ondansetron Inj 4 Mg/2 Ml Vial IV PUSH Q4H PRN Nausea Polyethylene Glycol 1
[2020-11-30] MEDS: LACTATED RINGERS 1,000 ML 75 ML IV CONT (07:59)
[2020-11-30] MEDS: POTASSIUM CHLORIDE 20 MEQ TABLET PO (09:30)
[2020-11-30] MEDS: polyethylene glycoL 3350 17 GM POWD.PACK PO (09:30)
[2020-11-30] MEDS: DOCUSATE SODIUM 100 MG CAPSULE PO ×2 (09:30→20:01)
[2020-11-30] MEDS: cefTRIAXone 1 GM VIAL 0.5 GM IM (11:33)
[2020-11-30] MEDS: LIDOCAINE HCL 1% LOCAL INJ 10 ML VIAL 2.1 ML INFILTRATE (11:33)
[2020-11-30 14:00] VITALS: BP 119/76; PULSE 85; RESP 18; TEMP 36.5; O2SAT 100
--- NOTE | 2020-11-30 14:25 | PM.PNGS ---
Progress Note: A&P Assessment and Plan (1) Gallbladder sludge: Onset Date: Unknown Code(s): K82.8 - Other specified diseases of gallbladder Status: Acute Assessment and Plan: This was seen on yesterday's ultrasound. I did discuss with her the biliary sludge noted on her ultrasound and suggested after she finishes her antibiotics will consider a course of Actigall. She can schedule an appointment in my office in about 3-4 weeks to talk about this and started if she wishes (2) Tobacco dependence: Onset Date: Unknown Code(s): F17.200 - Nicotine dependence, unspecified, uncomplicated Status: Acute Assessment and Plan: Encouraged her to stop smoking (3) Abdominal pain: Onset Date: ~10/2020 Code(s): R10.9 - Unspecified abdominal pain Status: Acute Assessment and Plan: Improving, most likely secondary to pelvic inflammatory disease. Additional Plan I will sign off at this point. Diet can be advanced to a low fat diet and I gave the patient our recmended low fat diet sheet in view of her GB sludge. Subjective Subjective Date/Time Seen: 11/30/20 14:25 Patient states she feels a lot better today. She is tolerating a general diet now. States she understands that we feel that it is most likely a pelvic inflammatory disease situation that will be helped by antibiotics. I did discuss with her the biliary sludge noted on her ultrasound and suggested after she finishes her antibiotics will consider a course of Actigall. She can schedule an appointment in my office in about 3-4 weeks to talk about this and start it if she wishes. Review of Systems Constitutional: Constitutional: Reports no additional constitutional complaints ENT: Reports other (Mucous Membranes moist.) Cardiovascular: Cardiovascular: Denies dyspnea Respiratory: Respiratory: Denies pain on inspiration and Denies dyspnea Musculoskeletal: Musculoskeletal: Reports other (No calf swelling or edema) Integumentary/Breasts: Skin/Breast: Reports system reviewed and no additional complaints, except as docu Exam Const: General: cooperative, no acute distress, alert and awake Orientation/consciousness: patient oriented x3 HENMT: Mouth: Yes moist mucous membranes Neck: Neck: normal visual inspection Chest: Chest palpation & inspection: normal inspection of the chest Resp: Effort & Inspection: normal respiratory effort Auscultation: clear to auscultation bilaterally Cardio: Jugular venous distension: no JVD Rate: regular rate Rhythm: regular rhythm GI: GI Palp: Yes Soft to palpation Auscultation: normal bowel sounds Rectal Exam: deferred Neuro: General: patient oriented x3 and moves all extremities Speech: normal speech Extrem: General: normal exam except as noted Psych: Mental Status: mental status grossly normal Speech and movement: Normal speech and movement present Affect: normal affect Thought content: Yes Normal thought content present Objective Data Vital Signs Vital Signs: Vital Signs - 24 hr 11/29/20 20:20 11/30/20 05:04 11/30/20 14:00 Temperature 37.1 C 36.4 C 36.5 C Pulse Rate 81 79 85 Respiratory Rate 18 16 18 Blood Pressure 119/67 101/59 L 119/76 Pulse Oximetry 98 96 100 Intake/Output Intake/Output: Intake & Output 11/27/20 11/28/20 11/29/20 11/30/20 23:59 23:59 23:59 23:59 Intake Total 3950 540 Output Total 1100 400 Balance 2850 140 Meds/Results Medications: Active Medications Generic Name Dose Route Start Last Admin Trade Name Ianq PRN Reason Stop Dose Admin Docusate Sodium 100 mg 11/29/20 21:00 11/30/20 09:30 Docusate Sodium 100 Mg Capsule PO 100 mg Q12HR VINAYAK Administration Lactated Ringer's 1,000 mls @ 75 mls/hr 11/28/20 23:45 11/30/20 11:24 Lr - Lactated Ringers Iv IV CONT Not Given .[id number] VINAYAK Doxycycline Hyclate 100 mg in 100 mls @ 100 mls/hr 11/29/20 15:00 11/30/20 03:01 Vibramycin 100 Mg/D5w 100 M
--- NOTE | 2020-11-30 14:52 | PM.IMPN ---
Progress Note: A&P Assessment and Plan (1) PID (pelvic inflammatory disease): Code(s): N73.9 - Female pelvic inflammatory disease, unspecified Status: Acute Assessment and Plan: Patient presented with diffuse abdominal pain. Imaging consistent with pelvic inflammatory disease CT showed nonspecific fluid collections with probably reactive lymphadenopathy Transvaginal ultrasound showed bilateral adnexal fluid collections Gonorrhea and chlamydia testing not completed prior to initiation of antibiotic therapy. History of gonorrhea and chlamydia in May 2020. Will repeat RNA but aware recent antibiotic therapy may affect results. Partner(s) will need treatment Bedside test negative. Quantitative Beta-hCG <2 Appreciate general surgery and gynecology consultation Continue with IV Cefotetan and doxycycline for minimum 48 hours per gynecology recommendations. Started on 11/29/2020. Supportive care. Analgesics and antiemetics available as needed Leukocytosis has resolved. She remains afebrile. Advanced to regular diet. Discontinue IV fluids as she is tolerating p.o. intake. (2) Tubo-ovarian abscess: Code(s): N70.93 - Salpingitis and oophoritis, unspecified Status: Acute Assessment and Plan: Bilateral fluid collections noted on CT and transvaginal ultrasound felt to be consistent with TOA. Discussed with Interventional Radiology, not amenable to drainage due to small size. Plan as above. (3) Leukocytosis: Code(s): D72.829 - Elevated white blood cell count, unspecified Status: Acute Assessment and Plan: Resolved. She reports white count was 96020 at outside hospital several days ago. WBC is 8000 today. Secondary to DOA as above. (4) Abnormal urinalysis: Code(s): R82.90 - Unspecified abnormal findings in urine Status: Acute Assessment and Plan: UA with 3+ leuk esterase and >75 WBC, however with many squamous cells, concerning for contamination. She previously endorse mild dysuria but has no urinary symptoms today. Urine culture showed mixed rodolfo indicating likely contamination. She remains on broad-spectrum antibiotics for infection as above. (5) Tobacco dependence: Onset Date: Unknown Code(s): F17.200 - Nicotine dependence, unspecified, uncomplicated Status: Acute Assessment and Plan: She smokes 1 pack per day. Had educated the patient on smoking cessation and she verbalized understanding. Declines need for nicotine patch (6) Hypokalemia: Code(s): E87.6 - Hypokalemia Status: Acute Assessment and Plan: Likely secondary to poor p.o. intake as well as nausea and vomiting. Improved. Potassium 3.4 today. Given additional 20 mEq p.o. KCl. Magnesium is 1.9. Monitor BMP daily. Subjective Date/time seen: 11/30/20 14:52 Interval history: Date of service: 11/30/2020 Armin Simmons is a healthy 30-year-old female who is seen in follow-up for pelvic inflammatory disease. She is feeling a lot better today. She does endorse abdominal pain in the left lower quadrant that she rates as 3/10. She denies nausea or vomiting. No fevers or chills. She has been able to tolerate her diet with no issues. She denies body aches, joint pain, headaches. No shortness breath, cough, chest pain, or palpitations. Denies right upper quadrant pain. Her last bowel movement was approximately 5 days ago but she has been passing gas in feels that she will need to have a bowel movement soon. Denies any urinary symptoms. Review of Systems Review of Systems: All systems reviewed & are unremarkable except as noted in HPI and below Exam Narrative: Ms. Simmons is a well-nourished, well-appearing 30-year-old female who is lying semirecumbent in bed. She appears comfortable and is in NARD. Neuro: awake, alert and oriented x4, speech clear, no focal neuro deficits noted HEENMT: normocephalic
[2020-11-30 20:12] VITALS: BP 135/75; PULSE 84; RESP 17; TEMP 36.3; O2SAT 99
[2020-12-01 05:06] VITALS: BP 107/59; PULSE 71; RESP 17; TEMP 36.6; O2SAT 99
[2020-12-01] MEDS: cefoTEtan DISODIUM INJ 2 GM in DEXTROSE 5% IN WATER 50 ML IVPB (05:09)
[2020-12-01 05:48] LABS: Anion Gap 6 mmol/L (8-16); Blood Urea Nitrogen 4 mg/dL (7-17); Calcium 8.6 mg/dL (8.4-10.2); Carbon Dioxide 25 mmol/L (22-30); Chloride 106 mmol/L (98-107); Estimated CRCL calculation 134 ml/min; Estimated Glomerular Filt Rate > 60; Glucose 105 mg/dL (65-110); Potassium 3.5 mmol/L (3.4-5.0); Sodium 137 mmol/L (137-145)
[2020-12-01 05:49] LABS: Hemoglobin 11.4 g/dL (12.0-15.0); Mean Corpuscular HGB Conc 34.5 g/dl (32-36); Mean Corpuscular Hemoglobin 29.8 pg (26-34); Mean Corpuscular Volume 86.2 fl (80-100); Mean Platelet Volume 9.8 fl (7.4-10.4); Platelet Count Result 292 k/mm3 (150-375); Red Blood Count 3.83 M/mm3 (4.2-5.4); Red Cell Distribution Width 12.9 % (11.5-14.5); White Blood Count 9.1 K/mm3 (4.5-10.0)
--- NOTE | 2020-12-01 07:35 | P.PNOB_ITS ---
OB - PN: Subj Subjective Date/time seen: 12/01/20 07:35 Interval history: Date of service: 11/30/2020 Armin Simmons is a healthy 30-year-old female who is seen in follow-up for pelvic inflammatory disease. She is feeling a lot better today. She does endor se abdominal pain in the left lower quadrant that she rates as 3/10. She denies nausea or vomiting. No fevers or chills. She has been able to tolerate her diet with no issues. She denies body aches, joint pain, headaches. No shortness breath, cough, chest pain, or palpitations. Denies right upper quadrant pain. Her last bowel movement was approximately 5 days ago but she has been passing gas in feels that she will need to have a bowel movement soon. Denies any urinary symptoms. OB - PN: Obj Data Labs CBC & Chem 7: 12/01/20 05:23 12/01/20 05:24 Labs: Laboratory Results - last 24 hr 12/01/20 12/01/20 05:23 05:24 WBC 9.1 RBC 3.83 L Hgb 11.4 L Hct 33.0 L MCV 86.2 MCH 29.8 MCHC 34.5 RDW 12.9 Plt Count 292 MPV 9.8 Sodium 137 Potassium 3.5 Chloride 106 Carbon Dioxide 25 Anion Gap 6 L BUN 4 L Creatinine 0.50 L Estim Creat Clear Calc 134 Estimated GFR > 60 Glucose 105 Calcium 8.6 OB - PN A/P Time Spent With Patient Time: Total time spent is greater than 50% in coordination of care (as documented) at patient's floor/unit and/or counseling patient:
--- NOTE | 2020-12-01 07:36 | P.DS_ITS ---
DS: Admitting Diagnosis Discharge Date 12/01/20 Admitting Diagnosis bilateral TOA OB - DS: Summary OB Procedures : None OB Procedures Intrapartum: Other OB Procedures: : None Time Spent with Patient Time attestation: Total time spent providing and/or coordinating discharge services: DS: Data Data Completed and Pending Labs on day of discharge: Labs from last 24 hours 12/01/20 12/01/20 11/30/20 05:24 05:23 18:32 WBC 9.1 RBC 3.83 L Hgb 11.4 L Hct 33.0 L MCV 86.2 MCH 29.8 MCHC 34.5 RDW 12.9 Plt Count 292 MPV 9.8 Sodium 137 Potassium 3.5 Chloride 106 Carbon Dioxide 25 Anion Gap 6 L BUN 4 L Creatinine 0.50 L Estim Creat Clear Calc 134 Estimated GFR > 60 Glucose 105 Calcium 8.6 C.trachomatis RNA (TMA) Pending N.gonorrhoeae RNA (TMA) Pending Discharge Plan Discharge Attending physician on discharge: Castro De La Paz Consulting providers: Keven Belle ; Denise Chandler ; Thierry Lockwood ; Katherin Gage ; Watson Ybarra ; Tristen Valentino ; Perez Terry ; Irena Thornton ; Ousmane Umaña Discharging Clinician: Thierry Lockwood Patient Disposition: Home, Self-Care Activity: as tolerated Diet: as tolerated Discharge Instructions: Patient to follow discharge care instruction from her [employer] Business Representative and follow up as scheduled, patient to follow up with her primary care provider as soon as possible, patient is instructed if any symptoms redevelop to go to nearest ER Patient Instructions: Antibiotic Form, How to Stop Smoking (DC), Pain Management (DC) Stand Alone Forms: General Discharge Information Follow-up/Referrals: Nayan,YARELIS Layton [Primary Care Provider] - Denise Chandler MD [Physician] - 3 Weeks Discharge Medications: Continued doxycycline hyclate 100 mg capsule 100 mg PO DAILY Qty: 20 RF: 0 venlafaxine 75 mg tablet 75 mg PO BID Qty: 90 RF: 0 metronidazole 500 mg tablet 500 mg PO TID Qty: 30 RF: 0 Discontinued levofloxacin 500 mg tablet 500 mg PO DAILY RF: 0 Date of admission: 11/30/20 10:31 Primary Care Provider: NayanKinjal Admitting Provider: Juan Manuel Reid V. Attending physician on admission: Castro De La Paz Condition: Stable
--- NOTE | 2020-12-01 08:15 | PM.DS ---
DS: Admitting Diagnosis Discharge Date 12/01/2020 Admitting Diagnosis Chief Complaint: Abdominal pain DS: Discharge Diagnosis Discharge Diagnosis (1) PID (pelvic inflammatory disease): Code(s): N73.9 - Female pelvic inflammatory disease, unspecified Status: Acute Assessment and Plan: Patient presented with diffuse abdominal pain. Imaging consistent with pelvic inflammatory disease CT showed nonspecific fluid collections with probably reactive lymphadenopathy Transvaginal ultrasound showed bilateral adnexal fluid collections Gonorrhea and chlamydia testing not completed prior to initiation of antibiotic therapy. History of gonorrhea and chlamydia in May 2020. Will repeat RNA but aware recent antibiotic therapy may affect results. Partner(s) will need treatment Bedside test negative. Quantitative Beta-hCG <2 Appreciate general surgery and gynecology consultation Continue with IV Cefotetan and doxycycline for minimum 48 hours per gynecology recommendations. Started on 11/29/2020. Supportive care. Analgesics and antiemetics available as needed Leukocytosis has resolved. She remains afebrile. Advanced to regular diet. Discontinue IV fluids as she is tolerating p.o. intake. (2) Tubo-ovarian abscess: Code(s): N70.93 - Salpingitis and oophoritis, unspecified Status: Acute Assessment and Plan: Bilateral fluid collections noted on CT and transvaginal ultrasound felt to be consistent with TOA. Discussed with Interventional Radiology, not amenable to drainage due to small size. Plan as above. (3) Leukocytosis: Code(s): D72.829 - Elevated white blood cell count, unspecified Status: Acute Assessment and Plan: Resolved. She reports white count [place] 54048 at outside hospital several days ago. WBC is 8000 today. Secondary to DOA as above. (4) Abnormal urinalysis: Code(s): R82.90 - Unspecified abnormal findings in urine Status: Acute Assessment and Plan: UA with 3+ leuk esterase and >75 WBC, however with many squamous cells, concerning for contamination. She previously endorse mild dysuria but has no urinary symptoms today. Urine culture showed mixed rodolfo indicating likely contamination. She remains on broad-spectrum antibiotics for infection as above. (5) Tobacco dependence: Onset Date: Unknown Code(s): F17.200 - Nicotine dependence, unspecified, uncomplicated Status: Acute Assessment and Plan: She smokes 1 pack per day. Had educated the patient on smoking cessation and she verbalized understanding. Declines need for nicotine patch (6) Hypokalemia: Code(s): E87.6 - Hypokalemia Status: Acute Assessment and Plan: Likely secondary to poor p.o. intake as well as nausea and vomiting. Improved. Potassium 3.4 today. Given additional 20 mEq p.o. KCl. Magnesium is 1.9. Monitor BMP daily. DS: Summary Hospital Course Reason for hospitalization: Chief Complaint: Abdominal pain Narrative: This is a 30-year-old female with past medical history significant for depression, tobacco dependence she smokes 1 pack a day. She presents to the emergency room due to worsening abdominal pain which await initially was localized to the epigastric area and now is at the left lower quad with nausea and vomiting ,unable to eat, has not been smoking as a result of these, poor appetite after presenting to [facility] emergency room where she had a CT of abdomen and pelvis performed and discharged home on levofloxacin metronidazole and doxycycline this was 2 days ago. She denies any fevers any rigors any chills any vaginal discharge no pain or burning with urination, no cough no sputum production, had some diarrhea. Preliminary workup significant was significant for urinalysis with numerous wbc's review of CT of abdomen and pelvis performed at outside hospital showed multiple nonspecific findings. Decision h
== END 2020-12-01 10:29 | disposition home or self-care (01) | DRG 531 ==
LOC: ANHED 11-29 00:08 → ANH3MED 11-29 02:47
PROVIDERS: Emergency Medicine; Physician Assistant; Admitting Provider Internal Medicine; Emergency Provider Emergency Medicine; PCP Nurse Practitioner Family; Visit Provider Family Medicine
DX: N70.03 Acute salpingitis and oophoritis (principal); A54.24 Gonococcal female pelvic inflammatory disease; A56.11 Chlamydial female pelvic inflammatory disease; A74.9 Chlamydial infection, unspecified; F32.9 Major depressive disorder, single episode, unspecified; F17.210 Nicotine dependence, cigarettes, uncomplicated; D72.829 Elevated white blood cell count, unspecified; R82.90 Unspecified abnormal findings in urine; E87.6 Hypokalemia; K82.8 Other specified diseases of gallbladder
CPT/HCPCS: 36415; 74019; 74177; 76705; 76830; 76856; 80048; 80053; 81001; 81025; 83690; 83735; 84702; 85025; 85027; 87086; 87088; 87491; 87591; 96361; 96365; 96366; 96367; 96375; 99285; A9270; G0378; G0379; J0696; J2405; J2543; J3370; J7120; Q9967

== ENCOUNTER 2021-02-10 10:31 | Inpatient (IN) | payer OTHER, SELFPAY ==
--- NOTE | ~2021-02-10 | CT_ITS ---
EXAMINATION: CT abdomen pelvis w con DATE: 02/10/2021 16:28 INDICATION: Pelvic abscess. TECHNIQUE: Computed tomography (CT) of the abdomen and pelvis was performed with 100 cc Omnipaque 350 intravenous contrast. The dose-length product was 503.81 mGy-cm. Automated exposure control and iterative reconstruction technique were employed. COMPARISON: CT dated 11/28/2020 and ultrasound dated 02/10/2021. FINDINGS: Lung bases are unremarkable. Heart size normal. No significant pleural or pericardial effus ion. There is a complicated fluid collection which has a tubular configuration in the left adnexa xochilt suring 9.4 x 5 x 4.4 cm. There is surrounding fluid and phlegmonous change. No bowel obstruction. The re is a 4 cm right adnexal cyst, likely ovarian. There is fluid in the left paracolic gutter. Lung bases are unremarkable. Heart size normal. No significant pleural or pericardial effusion. There is oval shaped soft tissue inferior to the complicated fluid collection, possibly the left ovary. Th e liver, spleen, pancreas, adrenal glands and kidneys are unremarkable. Gallbladder is present. No fr ee air. IMPRESSION: 1. Complicated left adnexal fluid collection with tubular configuration. Differential diagnosis inclu robert tubo-ovarian versus peridiverticular abscess. Small amount of free fluid. 2: Right adnexal cyst measuring 4 cm, likely ovarian. Reviewed, dictated and finalized at location A. IMEN TECHNICIAN IMPRESSION: 1. Complicated left adnexal fluid collection with tubular configuration. Differ ential diagnosis includes tubo-ovarian versus peridiverticular abscess. Small a mount of free fluid. 2: Right adnexal cyst measuring 4 cm, likely ovarian.
--- NOTE | ~2021-02-10 | US_ITS ---
EXAMINATION: US pelvic complete w TV DATE: 02/10/2021 12:43 INDICATION: Pelvic pain, recent tubo-ovarian abscess TECHNIQUE: Multiple transabdominal and endovaginal sonographic images of the pelvis were obtained. COMPARISON: 11/29/2020 FINDINGS: The uterus measures 8.5 x 4.7 x 5.5 cm. The endometrial complex measures 4 mm. The right ov juan measures 3.9 x 2.8 x 3.5 cm. There there appears to be a 6.6 x 5.1 cm complex cystic and solid ar ea in the left adnexa. IMPRESSION: 1. Complex cystic and solid area in the left adnexa which could reflect the left ovary and possible a bscess. Reviewed, dictated and finalized at location A. RECOVERY PLANNER IMPRESSION: 1. Complex cystic and solid area in the left adnexa which could reflect the lef t ovary and possible abscess.
--- NOTE | ~2021-02-10 | CT_ITS ---
EXAMINATION: CT guide absc cath placement DATE: 02/12/2021 13:24 INDICATION: Left tubo-ovarian abscess TECHNIQUE: The procedure including the risks and benefits was discussed with the patient. Risks discu ssed included bleeding, allergic reaction and infection. The patient understood the risks and benefit s and agreed to proceed. The patient was confirmed to be receiving appropriate antibiotic coverage. The skin overlying the anterior left pelvis was prepped and draped in usual sterile fashion. Anesthe tic was administered with 1% lidocaine subcutaneously. Patient was also given 100 mcg of fentanyl IV for conscious sedation. Repeat aerial installer imaging of the pelvis are performed following administration of 80 mL Omnipaque-350 to better delineate the surrounding vasculature and anatomy.] An 18-gauge trocar needle was advanced into the left tubo-ovarian abscess utilizing CT guidance. The trocar was removed and a J-wire advanced into the fluid collection with positioning confirmed by CT. Utilizing Seldinger technique the needle was removed, the tract serially dilated to 9 Prydeinig and subsequently an 8.5 [facility] catheter was inserted over the wire. The loop was formed and locked and position confirm ed by CT prior to removal of the wire. The catheter was stitched to the skin with suture and antibiot ic appointment and a sterile dressing were applied. 20 mL of turbid asglhzb-[id number]-[id number] fluid was a spirated and sent to lab for Gram stain and cultures. The catheter was then attached to suction drain age and was draining a small amount of additional fluid at the conclusion of the procedure. There wer e no immediate complications. The dose-length product was 317.22 mGy-cm. FINDINGS: CT images demonstrate the catheter within the fluid collection. 20 mL fluid was aspirated f or testing. IMPRESSION: 1. Successful CT-guided left tubo-ovarian abscess drainage. 2. Date mL fluid was sent for stain, aerobic and anaerobic cultures. 3. The catheter will be managed by Dr. Chandler. Reviewed, dictated and finalized at location A. STRAIGHTENER
[2021-02-10 10:34] VITALS: BP 124/78; PULSE 109; RESP 16; TEMP 36.4; O2SAT 100
[2021-02-10 11:03] LABS: Basophils Percent Auto 0.1 % (0.2-1.2); Eosinophils Absolute Auto 0.1 K/mm3 (0-0.3); Eosinophils Percent Auto 0.3 % (0-4.4); Hematocrit 37.4 % (37.0-47.0); Hemoglobin 12.7 g/dL (12.0-15.0); Immature Granulocyte Absolute 0.08 K/mm3 (0.00-0.031); Immature Granulocyte Percent A 0.4 % (0-0.5); Lymphocytes Absolute Auto 2.26 K/mm3 (0.9-3.2); Lymphocytes Percent Auto 10.8 % (18.3-44.2); Mean Corpuscular Hemoglobin 29.4 pg (26-34); Mean Corpuscular Volume 86.6 fl (80-100); Mean Platelet Volume 9.7 fl (7.4-10.4); Monocytes Absolute Auto 0.8 K/mm3 (0.1-0.6); Monocytes Percent Auto 3.8 % (2.6-8.5); Neutrophils Absolute Auto 17.6 K/mm3 (1.3-6.7); Neutrophils Percent Auto 84.6 % (45.5-73.1); Platelet Count Result 392 k/mm3 (150-375); Red Blood Count 4.32 M/mm3 (4.2-5.4); Red Cell Distribution Width 13.1 % (11.5-14.5); White Blood Count 20.8 K/mm3 (4.5-10.0)
[2021-02-10 11:12] LABS: Add Urine Microscopic? YES; Appearance Urine Cloudy (Clear); Bilirubin Urine Negative (Negative); Blood Urine 3+ (Negative); Color Urine Yellow (Yellow); Glucose Urine UA Negative (Negative); Ketones Urine Trace mg/dL (Negative); Leukocyte Esterase Ur Trace LEU/UL (Negative); Mucus Urine Rare /lpf; Nitrate Urine Negative (Negative); Protein Urine 1+ mg/dL (Negative); RBC Urine >75 /hpf (0-2); Specific Grav Ur 1.021 (1.001-1.035); Squamous Epithelial Cell Urine Many /hpf (Few); Urobilinogen Urine Negative mg/dL (<2.0); WBC Urine 21-30 /hpf
[2021-02-10 11:15] LABS: Alanine Aminotransferase 13 U/L (4-35); Alkaline Phosphatase 85 U/L (38-126); Anion Gap 8 mmol/L (8-16); Aspartate Amino Transferase 16 U/L (14-36); Bilirubin,Total 0.6 mg/dL (0.2-1.3); Blood Urea Nitrogen 9 mg/dL (7-17); Calcium 9.5 mg/dL (8.4-10.2); Carbon Dioxide 23 mmol/L (22-30); Chloride 104 mmol/L (98-107); Estimated CRCL calculation 134 ml/min; Estimated Glomerular Filt Rate > 60; Glucose 116 mg/dL (65-110); Lipase 19 U/L (23-300); Potassium 3.8 mmol/L (3.4-5.0); Sodium 135 mmol/L (137-145)
--- NOTE | 2021-02-10 12:00 | ED.ABDPAIN ---
HPI - Abdominal Pain General Chief Complaint: Abdominal Pain Stated Complaint: abdominal pain Time Seen by Provider: 02/10/21 11:21 Source: patient Mode of arrival: ambulatory Limitations: no limitations History of Present Illness HPI narrative: This is a 30-year-old female that presents to the emergency department for pelvic pain. Ongoing over the last 2 days. Associated with abnormal vaginal discharge. Was recently admitted for tubo-ovarian abscesses. Did not go to her follow-up appointment. Her can solderer is Dr. Lockwood. Denies fever, vomiting, flank pain, or dysuria. Related Data Allergies Allergy/AdvReac Type Severity Reaction Status Date / Time No Known Allergies Allergy Unknown Unverified 11/29/20 01:44 Review of Systems Review of Systems: CONSTITUTIONAL: Denies fever GASTROINTESTINAL: Reports abdominal pain. Denies nausea, vomiting GENITOURINARY: Denies dysuria or hematuria. All systems reviewed & are unremarkable except as noted in HPI and below PMFSH Past Medical History Medical History History of PID Tobacco dependence Surgical History Surgical History No significant past surgical history Family History Family History Other No pertinent family history Social History Social History Smoking packs per day: 1 Smoking cigarettes per day: 20.0 Years smoked: 10 Smoking pack-years: 10.00 Smoking status: Current every day smoker Tobacco type: cigarettes Second hand tobacco smoke exposure: No Alcohol intake: never Substance use: never Substance use type: does not use Gender identity (if verbalized by the patient): Female Spiritual care concerns: No Exam Narrative: GENERAL: Well-appearing, well-nourished, and in no acute distress. HEAD: Normocephalic, atraumatic. EYES: EOMI. CHEST: Clear to auscultation. No respiratory distress. No wheezes rales or rhonchi HEART: Regular rate and rhythm. No murmur heard. Normal peripheral pulses. ABDOMEN: Soft, nondistended, normal active bowel sounds. Tender to palpation in the pelvis bilaterally EXTREMITIES: Normal range of motion. No edema. SKIN: Warm, dry, no rash. NEURO: No focal deficits. Alert and oriented x3. PSYCH: Normal mood and affect PELVIC: Normal external genitalia. Clear/yellow cervical discharge. Small amount of dark red blood in the vaginal vault. Tender to palpation of the adnexa bilaterally Course Consultations Consultation #1: Spoke with Dr. Chandler about patient and work-up. Patient will be started on ceftriaxone and doxycycline. Kept n.p.o. She will see patient in a couple of hours. Would like interventional radiology to be notified for possible drainage. Date: 02/10/21 Time: 14:03 Vital Signs Vital signs: Vital Signs Temperature 97.5 F L 02/10/21 10:34 Pulse Rate 109 H 02/10/21 10:34 Respiratory Rate 16 02/10/21 10:34 Blood Pressure 124/78 02/10/21 10:34 Pulse Oximetry 100 02/10/21 10:34 Temperature 97.5 F L 02/10/21 10:34 Pulse Rate 109 H 02/10/21 10:34 Respiratory Rate 16 02/10/21 10:34 Blood Pressure 124/78 02/10/21 10:34 Pulse Oximetry 100 02/10/21 10:34 MDM - Abdominal Pain MDM Narrative Medical decision making narrative: Patient presents to the ER for pelvic pain ongoing over the last couple of days. She is afebrile and nontoxic-appearing. Vitals are stable. CBC with leukocytosis to 20.8. Metabolic panel and lipase without concerning findings. UA with 21-30 white blood cells, also many squamous epithelial cells. This will be sent for culture. Bedside test is negative. Trichomonas is negative. Chlamydia, gonorrhea and genital culture were sent. Pelvic ultrasound shows complex cystic and solid area in the left adnexa which could reflect the
[2021-02-10] MEDS: MORPHINE SULFATE (*CRX) 4 MG/ML INJ IV PUSH ×2 (13:34→20:38)
--- NOTE | 2021-02-10 14:05 | PC.NURSE ---
Patient report attempted to be called. Informed the nurse is unable to take at this time. Will continue to monitor.
[2021-02-10 15:05] VITALS: BP 109/72; PULSE 98; RESP 14; O2SAT 97
[2021-02-10 15:36] VITALS: BMI 29.1
[2021-02-10 16:00] VITALS: BP 121/66; PULSE 100; RESP 18; TEMP 36; O2SAT 100
--- NOTE | 2021-02-10 16:11 | PM.IMHP ---
H&P: HPI History of Present Illness Date/Time: 02/10/21 16:00 Armin is a 30yo P2002, LMP 01/16/21 who presented to the ER with pelvic pain that started on 02/08/21 described as sharp/cramping, 7/10. She is afebrile, but found to have a leukocytosis of 20+. US was performed and shows a 5x6cm complex left adnexal mass concerning for TOA. She was recently admitted in November 2020 with PID (small amount of fluid noted in bilateral adnexa). She was treated and reports compliance w/ medications. She states her partner was also treated, but that they have not been sexually active since before her last admission. She did not follow up outpatient after her last admission. Urine, STI, and vaginal cultures were all obtained in the ER. She denies CP, SOB, fever, chills, dysuria, DENNY, N/V, vision changes, dizziness or palpitations. She had a BM yesterday, normal urinary function. She reports vaginal discharge and abnormal bleeding that started yesterday. Chief Complaint: pelvic pain Review of Systems Review of Systems: All systems reviewed & are unremarkable except as noted in HPI and below (HPI) [facility] Past Medical History Medical History History of PID Tobacco dependence (Unknown) Surgical History Surgical History No significant past surgical history Family History Family History Other No pertinent family history Social History Social History Smoking packs per day: 1 Smoking cigarettes per day: 20.0 Years smoked: 10 Smoking pack-years: 10.00 Smoking status: Current every day smoker Tobacco type: cigarettes Second hand tobacco smoke exposure: No Alcohol intake: never Substance use: never Substance use type: does not use Gender identity (if verbalized by the patient): Female Spiritual care concerns: No Meds Home Medications and Allergies Home Medications Medication Instructions Recorded Confirmed Type doxycycline hyclate 100 mg PO DAILY #20 cap 12/01/20 11/29/20 Rx metronidazole 500 mg PO TID #30 tablet 12/01/20 11/29/20 Rx venlafaxine 75 mg PO BID #90 tablet 12/01/20 11/29/20 Rx Allergies Allergy/AdvReac Type Severity Reaction Status Date / Time No Known Allergies Allergy Unknown Unverified 11/29/20 01:44 Vital Signs Vital Signs - 24 hr 02/10/21 10:34 02/10/21 15:05 Temperature 36.4 C L Pulse Rate 109 H 98 Respiratory Rate 16 14 Blood Pressure 124/78 109/72 Pulse Oximetry 100 97 Exam Const: General: cooperative, healthy appearing and uncomfortable Resp: Effort & Inspection: normal respiratory effort Cardio: Rate: regular rate GI: Inspection: non-distended GI Palp: Yes abdominal tenderness and Yes Soft to palpation : Speculum Exam - Cervix: normal appearance of the cervix, Cervical os closed and Abnormal cervical discharge present bloody and white Bimanual exam- vagina & uterus: uterine size normal, Cervical tenderness present, fixed and Uterine tenderness Bimanual Exam- Adnexa, other: tender (L>R) bilaterally and Adnexal mass present on the left tender and fixed Skin: General skin exam: normal color Neuro: General: patient oriented x3 Extrem: General: normal to inspection Psych: Appearance: grossly normal Affect: normal affect Attitude: cooperative H&P: Results Labs Labs: Short CBC 02/10/21 Range/Units 10:47 WBC 20.8 H (4.5-10.0) K/mm3 Hgb 12.7 (12.0-15.0) g/dL Hct 37.4 (37.0-47.0) % Plt Count 392 H (150-375) k/mm3 BMP 02/10/21 10:47 Sodium 135 L Potassium 3.8 Chloride 104 Carbon Dioxide 23 BUN 9 D Creatinine 0.50 L Glucose 116 H Calcium 9.5 Liver Function 02/10/21 Range/Units 10:47 Total Bilirubin 0.6 (0.2-1.3) mg/dL AST 16 (14-36) U/L ALT 13 (4-35) U/L Alkaline
--- NOTE | 2021-02-10 16:17 | PC.NURSE ---
This patient, Armin Simmons, was transferred to [ CT] on 02/10/21 at 1617. . Appropriate documentation sent with patient.
[2021-02-10] MEDS: LACTATED RINGERS 1,000 ML 100 ML IV CONT (16:52)
[2021-02-10 19:31] VITALS: BP 107/56; PULSE 94; RESP 16; TEMP 36.6; O2SAT 99
[2021-02-10] MEDS: ONDANSETRON INJ 4 MG/2 ML VIAL IV PUSH (20:37)
[2021-02-10] MEDS: metroNIDAZOLE 250 MG TABLET 500 MG PO (20:38)
[2021-02-10 23:17] VITALS: BP 103/53; PULSE 92; RESP 16; TEMP 36.4; O2SAT 99
[2021-02-11] MEDS: LACTATED RINGERS 1,000 ML 100 ML IV CONT ×2 (03:06→12:37)
[2021-02-11 03:35] VITALS: BP 100/57; PULSE 80; RESP 16; TEMP 36.2; O2SAT 95
[2021-02-11 05:34] LABS: Basophils Percent Auto 0.1 % (0.2-1.2); Eosinophils Absolute Auto 0.1 K/mm3 (0-0.3); Eosinophils Percent Auto 0.5 % (0-4.4); Hematocrit 33.1 % (37.0-47.0); Hemoglobin 11.2 g/dL (12.0-15.0); Immature Granulocyte Absolute 0.08 K/mm3 (0.00-0.031); Immature Granulocyte Percent A 0.5 % (0-0.5); Lymphocytes Absolute Auto 2.28 K/mm3 (0.9-3.2); Lymphocytes Percent Auto 14.5 % (18.3-44.2); Mean Corpuscular HGB Conc 33.8 g/dl (32-36); Mean Corpuscular Hemoglobin 29.6 pg (26-34); Mean Corpuscular Volume 87.3 fl (80-100); Mean Platelet Volume 9.8 fl (7.4-10.4); Monocytes Absolute Auto 0.7 K/mm3 (0.1-0.6); Monocytes Percent Auto 4.7 % (2.6-8.5); Neutrophils Absolute Auto 12.5 K/mm3 (1.3-6.7); Neutrophils Percent Auto 79.7 % (45.5-73.1); Platelet Count Result 324 k/mm3 (150-375); Red Blood Count 3.79 M/mm3 (4.2-5.4); Red Cell Distribution Width 13.1 % (11.5-14.5); White Blood Count 15.7 K/mm3 (4.5-10.0)
[2021-02-11 05:45] LABS: Anion Gap 6 mmol/L (8-16); Blood Urea Nitrogen 7 mg/dL (7-17); Calcium 9.1 mg/dL (8.4-10.2); Carbon Dioxide 27 mmol/L (22-30); Chloride 102 mmol/L (98-107); Estimated CRCL calculation 130 ml/min; Estimated Glomerular Filt Rate > 60; Glucose 94 mg/dL (65-110); Potassium 3.8 mmol/L (3.4-5.0); Sodium 135 mmol/L (137-145)
[2021-02-11] MEDS: metroNIDAZOLE 250 MG TABLET 500 MG PO ×2 (08:17→20:30)
[2021-02-11] MEDS: DOCUSATE SODIUM 100 MG CAPSULE PO ×2 (08:17→20:30)
[2021-02-11] MEDS: MORPHINE SULFATE (*CRX) 4 MG/ML INJ IV PUSH ×3 (08:29→18:06)
[2021-02-11 09:32] VITALS: BP 100/51; PULSE 76; RESP 16; TEMP 36.6; O2SAT 100
--- NOTE | 2021-02-11 12:11 | PM.GYNPNOP ---
ACTIVITIES DIRECTOR SCOUTING - A/P Assessment and plan (1) Tubo-ovarian abscess: Code(s): N70.93 - Salpingitis and oophoritis, unspecified Status: Acute Assessment and Plan: - Radiology consulted for drain placement into large left sided TOA-- CT scan shows 9.5cm TOA; planning for drain placement 02/12/21 - Will need minimum of 48 hours of IV antibiotics after drain placement - Regular diet, will then plan for NPO after midnight + LR @ 100cc - Continue Ceftriaxone 1g IV q24 + Doxycycline 100mg IV q12h + Metronidazole 500mg PO q12h - Pain meds: tylenol + toradol + morphine PRN - Cultures pending - Will monitor temperature and CBC/electrolytes daily-- WBC downtrended from 20 --> 15 - Bowel regimen - SCDs while in bed; ambulation encouraged Time Spent With Patient Time: Total time spent is greater than 50% in coordination of care (as documented) at patient's floor/unit and/or counseling patient: Time with patient: less than 15 minutes ACTIVITIES DIRECTOR SCOUTING- PN:Junior Post-Op Subjective Date/time seen: 02/11/21 10:48 HD#2 Armin reports doing better today. Her pain is improved with the medications but still present, 07/24. She has tolerated regular diet. She is voiding, ambulating. Passing flatus; BM 2 days ago. Continues to have vaginal bleeding and vaginal discharge. CT scan was performed yesterday; left adnexal complex cyst measures 9.5x5.5x4cm. She is also noted to have a right adnexal mass measuring 4cm. Radiology plans to perform drain placement tomorrow, 02/12. She denies fever, chills, CP, SOB, N/V, dysuria, dizziness, palpitations, or DENNY. Review of Systems Review of Systems: All systems reviewed & are unremarkable except as noted in HPI and below (HPI) Exam Const: General: cooperative, healthy appearing, comfortable and no acute distress Resp: Effort & Inspection: normal respiratory effort Auscultation: clear to auscultation bilaterally Cardio: Rate: regular rate GI: Inspection: normal to inspection and non-distended GI Palp: Yes abdominal tenderness (pelvic, bilateral) and Yes Soft to palpation Auscultation: normal bowel sounds Back/Spine/Pelvis: Back: no CVA tenderness Skin: General skin exam: normal color Neuro: General: patient oriented x3 Extrem: General: normal to inspection Psych: Appearance: grossly normal Affect: normal affect Attitude: cooperative ACTIVITIES DIRECTOR SCOUTING - PN: Obj Data Vital Signs Vital Signs: Vital Signs - 24 hr 02/10/21 15:05 02/10/21 16:00 02/10/21 19:31 Temperature 36.0 C L 36.6 C Pulse Rate 98 100 94 Respiratory Rate 14 18 16 Blood Pressure 109/72 121/66 107/56 L Pulse Oximetry 97 100 99 02/10/21 23:17 02/11/21 03:35 02/11/21 09:32 Temperature 36.4 C L 36.2 C L 36.6 C Pulse Rate 92 80 76 Respiratory Rate 16 16 16 Blood Pressure 103/53 L 100/57 L 100/51 L Pulse Oximetry 99 95 100 Intake/Output Intake/Output: Intake & Output 02/08/21 02/09/21 02/10/21 02/11/21 23:59 23:59 23:59 23:59 Intake Total 150 1600 Balance 150 1600 Meds/Results Medications: Active Medications Generic Name Dose Route Start Last Admin Trade Name Freq PRN Reason Stop Dose Admin Acetaminophen 650 mg 02/11/21 13:15 Acetaminophen 325 Mg Tablet PO Q4H PRN Mild Pain (1-3) or Fever Docusate Sodium 100 mg 02/11/21 09:00 02/11/21 08:17 Docusate Sodium 100 Mg Capsule PO 100 mg Q12HR VINAYAK Administration Acetaminophen 1,000 mg in 100 mls @ 400 mls/hr 02/10/21 13:15 Ofirmev 1,000 Mg Ivpb IVPB 02/11/21 13:14 Q6H PRN Mild Pain (1-3) or Fever Ceftriaxone Sodium/Dextrose 1 gm in 50 mls @ 100 mls/hr 02/11/21 09:00 02/11/21 08:17 Rocephin 1 Gm/D5w 50 Ml IVPB 100 mls/hr Q24H VINAYAK Administration Doxycycline Hyclate 100 mg/ 100 mg in 100 mls @ 100 mls/hr 02/11/21 00:00 02/11/21 00:16 Sodium Chloride IVPB Infused Q12H VINAYAK Infusion Lactated Ringer's 1,000 mls @ 100 mls/hr 02/10/21 15:15 02/11/21 08:17 Lr - Lactated Ringers Iv IV CONT 0 mls/hr .Q10
[2021-02-11 14:00] VITALS: BP 101/44; PULSE 85; RESP 16; TEMP 36.5; O2SAT 99
[2021-02-11 18:00] VITALS: BP 112/59; PULSE 99; RESP 18; TEMP 36.4; O2SAT 100
[2021-02-11 19:19] VITALS: BP 100/59; PULSE 86; RESP 17; TEMP 36.8; O2SAT 100
[2021-02-11] MEDS: KETOROLAC 15 MG/ML VIAL (*BKC) IV PUSH (20:33)
[2021-02-11 23:30] VITALS: BP 101/55; PULSE 71; RESP 17; TEMP 36; O2SAT 99
[2021-02-12] VITALS (17 sets, daily range): BP systolic 100–112; BP diastolic 54–78; PULSE 73–89; RESP 14–22; TEMP 35.7–36.6; O2SAT 97–100
[2021-02-12] MEDS: LACTATED RINGERS 1,000 ML 100 ML IV CONT ×2 (00:10→13:20)
[2021-02-12 05:38] LABS: Basophils Percent Auto 0.1 % (0.2-1.2); Eosinophils Absolute Auto 0.1 K/mm3 (0-0.3); Hematocrit 30.6 % (37.0-47.0); Hemoglobin 10.4 g/dL (12.0-15.0); Immature Granulocyte Absolute 0.04 K/mm3 (0.00-0.031); Immature Granulocyte Percent A 0.4 % (0-0.5); Lymphocytes Absolute Auto 1.86 K/mm3 (0.9-3.2); Lymphocytes Percent Auto 17.7 % (18.3-44.2); Mean Corpuscular Hemoglobin 29.1 pg (26-34); Mean Corpuscular Volume 85.5 fl (80-100); Mean Platelet Volume 9.7 fl (7.4-10.4); Monocytes Absolute Auto 0.5 K/mm3 (0.1-0.6); Monocytes Percent Auto 4.6 % (2.6-8.5); Neutrophils Percent Auto 76.2 % (45.5-73.1); Platelet Count Result 307 k/mm3 (150-375); Red Blood Count 3.58 M/mm3 (4.2-5.4); Red Cell Distribution Width 12.6 % (11.5-14.5); White Blood Count 10.5 K/mm3 (4.5-10.0)
[2021-02-12 05:50] LABS: INR 1.1; Prothrombin Time 13.9 Seconds (11.1-14.7)
[2021-02-12 05:57] LABS: Anion Gap 6 mmol/L (8-16); Blood Urea Nitrogen 8 mg/dL (7-17); Calcium 8.8 mg/dL (8.4-10.2); Carbon Dioxide 26 mmol/L (22-30); Chloride 102 mmol/L (98-107); Estimated CRCL calculation 130 ml/min; Estimated Glomerular Filt Rate > 60; Glucose 98 mg/dL (65-110); Potassium 3.6 mmol/L (3.4-5.0); Sodium 134 mmol/L (137-145)
[2021-02-12] MEDS: metroNIDAZOLE 250 MG TABLET 500 MG PO ×2 (08:19→21:04)
[2021-02-12] MEDS: DOCUSATE SODIUM 100 MG CAPSULE PO ×2 (08:19→21:03)
--- NOTE | 2021-02-12 10:54 | PCCCNOTE ---
On 02/12/21, the student, [Charis Jordan ], provided care and [facility]. I have reviewed the student's documentation and agree with the findings.
--- NOTE | 2021-02-12 11:06 | PC.NURSE ---
To CT for drain placement by wheelchair.
--- NOTE | 2021-02-12 11:29 | WPDMODSED ---
Moderate Sedation Note-Pt Data Patient Data Allergies Allergy/AdvReac Type Severity Reaction Status Date / Time No Known Allergies Allergy Unknown Unverified 11/29/20 01:44 Home Medications Medication Instructions Recorded Confirmed Type doxycycline hyclate 100 mg PO DAILY #20 cap 12/01/20 02/10/21 Rx metronidazole 500 mg PO TID #30 tablet 12/01/20 02/10/21 Rx venlafaxine 75 mg PO BID #90 tablet 12/01/20 02/10/21 Rx Current Medications: Active Medications Acetaminophen (Acetaminophen 325 Mg Tablet) 650 mg PO Q4H PRN PRN Reason: Mild Pain (1-3) or Fever Docusate Sodium (Docusate Sodium 100 Mg Capsule) 100 mg PO Q12HR [facility] Last Admin: 02/12/21 08:19 Dose: 100 mg Documented by: Ceftriaxone Sodium/Dextrose (Rocephin 1 Gm/D5w 50 Ml) 1 gm in 50 mls @ 100 mls/hr IVPB Q24H [facility] Last Infusion: 02/12/21 08:50 Dose: Infused Documented by: Doxycycline Hyclate 100 mg/ (Sodium Chloride) 100 mg in 100 mls @ 100 mls/hr IVPB Q12H [facility] Last Admin: 02/12/21 00:07 Dose: 100 mls/hr Documented by: Lactated Ringer's (Lr - Lactated Ringers Iv) 1,000 mls @ 100 mls/hr IV CONT .Q10H [facility] Last Admin: 02/12/21 00:10 Dose: 100 mls/hr Documented by: Ketorolac Tromethamine (Ketorolac 15 Mg/Ml Vial (*Bkc)) 15 mg IV PUSH Q6H PRN PRN Reason: Pain Rated 4-6 Last Admin: 02/11/21 20:33 Dose: 15 mg Documented by: Metronidazole (Metronidazole 250 Mg Tablet) 500 mg PO Q12HR VINAYAK Last Admin: 02/12/21 08:19 Dose: 500 mg Documented by: Morphine Sulfate (Morphine Sulfate (*Crx) 4 Mg/Ml Inj) 4 mg IV PUSH Q4H PRN PRN Reason: Pain Rated 7-10 Last Admin: 02/11/21 18:06 Dose: 4 mg Documented by: Ondansetron HCl (Ondansetron Inj 4 Mg/2 Ml Vial) 4 mg IV PUSH Q6H PRN PRN Reason: Nausea And Vomiting Last Admin: 02/10/21 20:37 Dose: 4 mg Documented by: Polyethylene Glycol (Polyethylene Glycol 3350 17 Gm Powd.Pack) 17 gm PO QAM PRN PRN Reason: Constipation Sedation/Anesthesia: No previous sedation/anesthesia problems (including family history). [facility] Past Medical History Medical History History of PID Tobacco dependence (Unknown) Surgical History Surgical History No significant past surgical history Family History Family History Other No pertinent family history Social History Social History Smoking packs per day: 1 Smoking cigarettes per day: 20.0 Years smoked: 10 Smoking pack-years: 10.00 Smoking status: Current every day smoker Tobacco type: cigarettes Second hand tobacco smoke exposure: No Alcohol intake: never Substance use: never Substance use type: does not use Gender identity (if verbalized by the patient): Female Spiritual care concerns: No Mod Sed Physical Exam Physical Exam Pre Procedural Exam: Normal: Appearance, Eyes, Nose, Throat, Lungs, Heart Rate and Heart Rhythm and Variation: Abdomen (TTP) Hours since solid foods: 12 Hours since liquid intake: 12 Mallampati Classification: class 1 Internal Medicine - PN: Obj Da Vital Signs Vital Signs: Vital Signs - 24 hr 02/11/21 14:00 02/11/21 18:00 02/11/21 19:19 Temperature 97.7 F 97.6 F 98.2 F Pulse Rate 85 99 86 Respiratory Rate 16 18 17 Blood Pressure 101/44 L 112/59 L 100/59 L Pulse Oximetry 99 100 100 02/11/21 23:30 02/12/21 03:32 02/12/21 08:00 Temperature 96.8 F L 96.3 F L 97.4 F L Pulse Rate 71 89 78 Respiratory Rate 17 17 18 Blood Pressure 101/55 L 110/63 100/54 L Pulse Oximetry 99 100 99 Intake/Output Intake/Output: Intake & Output 02/09/21 02/10/21 02/11/21 02/12/21 23:59 23:59 23:59 23:59 Intake Total 150 4430 400 Output Total 350 Balance 150 4080 400 Meds/Results Medications: Active Medications Generic Name Dose Route Start Last Admin Trade Name Freq PRN Reason Stop D
--- NOTE | 2021-02-12 13:27 | PC.NURSE ---
Returned from CT per stretcher. Report received from [facility] RN.
[2021-02-12] MEDS: KETOROLAC 15 MG/ML VIAL (*BKC) IV PUSH ×2 (14:35→21:11)
--- NOTE | 2021-02-12 16:35 | PM.GYNPNOP ---
MANAGER ER - A/P Assessment and plan (1) Tubo-ovarian abscess: Code(s): N70.93 - Salpingitis and oophoritis, unspecified Status: Acute Assessment and Plan: - S/p drain placement on 02/12/21 by radiology - Plan for possible transition to PO abx on Fri and possible d/c home - Continue Ceftriaxone 1g IV q24 + Doxycycline 100mg IV q12h + Metronidazole 500mg PO q12h - Regular diet - Pain meds: tylenol + toradol + morphine PRN - Cultures pending (GC/CT + abscess) - Will monitor temperature and CBC/electrolytes daily-- WBC downtrended from 20 --> 15 --> 10 - Bowel regimen - SCDs while in bed; ambulation encouraged Postoperative Procedures: Procedures Operation Date: 02/12/21 11:30 Actual Procedure Side Surgeon p Radiology Procedure Mod.Sed.Rn- Abscess Drain Placement Left Brent Mancera MD Time Spent With Patient Time: Total time spent is greater than 50% in coordination of care (as documented) at patient's floor/unit and/or counseling patient: Time with patient: less than 15 minutes MANAGER ER- PN:Subj Post-Op Subjective Date/time seen: 02/12/21 16:30 HD#3 Armin reports doing well today. Her pelvic pain is improved with the drainage but still present, 5/10. She has tolerated regular diet. She is voiding, ambulating. Passing flatus; BM today. Continues to have vaginal bleeding and vaginal discharge. Radiology was able to place a drain today; sent 20cc for culture. Tolerating antibiotics without issue. She denies fever, chills, CP, SOB, N/V, dysuria, dizziness, palpitations, or DENNY. Review of Systems Review of Systems: All systems reviewed & are unremarkable except as noted in HPI and below (HPI) Exam Const: General: cooperative, healthy appearing, comfortable and no acute distress Resp: Effort & Inspection: normal respiratory effort Auscultation: clear to auscultation bilaterally Cardio: Rate: regular rate GI: Inspection: non-distended and incision (drain in LLQ w/ bloody/brown drainage noted) GI Palp: Yes abdominal tenderness (pelvic pain decreased) and Yes Soft to palpation Auscultation: normal bowel sounds Skin: General skin exam: normal color Neuro: General: oriented to person Extrem: General: normal to inspection Psych: Appearance: grossly normal Affect: normal affect Attitude: cooperative MANAGER ER - PN: Obj Data Vital Signs Vital Signs: Vital Signs - 24 hr 02/11/21 18:00 02/11/21 19:19 02/11/21 23:30 Temperature 36.4 C 36.8 C 36.0 C L Pulse Rate 99 86 71 Respiratory Rate 18 17 17 Blood Pressure 112/59 L 100/59 L 101/55 L Pulse Oximetry 100 100 99 02/12/21 03:32 02/12/21 08:00 02/12/21 11:50 Temperature 35.7 C L 36.3 C L 36.4 C L Pulse Rate 89 78 76 Respiratory Rate 17 18 20 Blood Pressure 110/63 100/54 L 111/71 Pulse Oximetry 100 99 100 02/12/21 12:10 02/12/21 12:15 02/12/21 12:20 Temperature Pulse Rate 79 89 89 Respiratory Rate 18 18 20 Blood Pressure 111/69 112/74 112/74 Pulse Oximetry 99 99 99 02/12/21 12:25 02/12/21 12:30 02/12/21 12:35 Temperature Pulse Rate 88 84 85 Respiratory Rate 20 22 H 20 Blood Pressure 110/69 109/72 110/72 Pulse Oximetry 98 98 98 02/12/21 12:40 02/12/21 12:45 02/12/21 12:50 Temperature Pulse Rate 82 80 73 Respiratory Rate 22 H 19 16 Blood Pressure 105/69 103/65 107/72 Pulse Oximetry 98 98 99 02/12/21 12:55 02/12/21 13:00 02/12/21 13:06 Temperature Pulse Rate 76 85 80 Respiratory Rate 16 16 14 Blood Pressure 109/70 108/66 105/78 Pulse Oximetry 99 99 99 Intake/Output Intake/Output: Intake & Output 02/09/21 02/10/21 02/11/21 02/12/21 23:59 23:59 23:59 23:59 Intake Total 150 4430 1600 Output Total 350 Balance 150 4080 1600 Meds/Results Medications: Active Medications Generic Name Dose Route Start Last Admin Trade Name Freq PRN Reason Stop Dose Admin Acetaminophen 650 mg 02/11/21 13:15 Acetaminophen 325 Mg Tablet PO Q4H PRN Mild Pain (1-3) or Fever Docusate
[2021-02-13] VITALS (7 sets, daily range): BP systolic 100–118; BP diastolic 57–85; PULSE 77–92; RESP 14–20; TEMP 35.9–36.4; O2SAT 93–99
[2021-02-13] MEDS: LACTATED RINGERS 1,000 ML 100 ML IV CONT (02:49)
[2021-02-13 05:40] LABS: Basophils Percent Auto 0.1 % (0.2-1.2); Eosinophils Absolute Auto 0.1 K/mm3 (0-0.3); Eosinophils Percent Auto 1.5 % (0-4.4); Hematocrit 31.2 % (37.0-47.0); Hemoglobin 10.4 g/dL (12.0-15.0); Immature Granulocyte Absolute 0.03 K/mm3 (0.00-0.031); Immature Granulocyte Percent A 0.4 % (0-0.5); Lymphocytes Absolute Auto 2.22 K/mm3 (0.9-3.2); Mean Corpuscular HGB Conc 33.3 g/dl (32-36); Mean Corpuscular Hemoglobin 29.2 pg (26-34); Mean Corpuscular Volume 87.6 fl (80-100); Mean Platelet Volume 9.7 fl (7.4-10.4); Monocytes Absolute Auto 0.3 K/mm3 (0.1-0.6); Neutrophils Absolute Auto 5.5 K/mm3 (1.3-6.7); Platelet Count Result 304 k/mm3 (150-375); Red Blood Count 3.56 M/mm3 (4.2-5.4); Red Cell Distribution Width 12.7 % (11.5-14.5); White Blood Count 8.2 K/mm3 (4.5-10.0)
[2021-02-13 05:58] LABS: Anion Gap 6 mmol/L (8-16); Blood Urea Nitrogen 8 mg/dL (7-17); Calcium 8.6 mg/dL (8.4-10.2); Carbon Dioxide 25 mmol/L (22-30); Chloride 104 mmol/L (98-107); Estimated CRCL calculation 130 ml/min; Estimated Glomerular Filt Rate > 60; Glucose 87 mg/dL (65-110); Potassium 3.6 mmol/L (3.4-5.0); Sodium 135 mmol/L (137-145)
[2021-02-13] MEDS: metroNIDAZOLE 250 MG TABLET 500 MG PO ×2 (08:51→20:32)
[2021-02-13] MEDS: DOCUSATE SODIUM 100 MG CAPSULE PO ×2 (08:51→20:32)
--- NOTE | 2021-02-13 12:29 | PM.GYNPNOP ---
SYSTEMS PROGRAMMER ANALYST - A/P Assessment and plan (1) Tubo-ovarian abscess: Code(s): N70.93 - Salpingitis and oophoritis, unspecified Status: Acute Assessment and Plan: - S/p drain placement on 02/12/21 by radiology - Drain output: pending-- will send for creatinine studies; will also order straight cath/UA - Pt may need repeat imaging - Plan for possible transition to PO abx tomorrow and possible d/c home - Continue Ceftriaxone 1g IV q24 + Doxycycline 100mg IV q12h + Metronidazole 500mg PO q12h - Regular diet - Pain meds: tylenol + ibuprofen + percocet PRN - TOA cultures pending - Gonorrhea positive; treated by IV meds - Will monitor temperature and CBC/electrolytes daily-- WBC downtrended from 20 --> 15 --> 10 -> 8 - Bowel regimen - SCDs while in bed; ambulation encouraged Postoperative Procedures: Procedures Operation Date: 02/12/21 11:30 Actual Procedure Side Surgeon p Radiology Procedure Mod.Sed.Rn- Abscess Drain Placement Left Brent Mancera MD Time Spent With Patient Time: Total time spent is greater than 50% in coordination of care (as documented) at patient's floor/unit and/or counseling patient: Time with patient: less than 15 minutes SYSTEMS PROGRAMMER ANALYST- PN:Subj Post-Op Subjective Date/time seen: 02/13/21 11:21 HD#4 Armin reports doing well today. Her pelvic pain is improved with the drain,3 /10. She has tolerated regular diet. She is voiding, ambulating. Passing flatus; BM yesterday. Reports that the vaginal bleeding and vaginal discharge have stopped. She reports significant hematuria/dark urine. No issues w/ drain overnight; brown drainage noted in bag. Tolerating antibiotics without issue. She denies fever, chills, CP, SOB, N/V, dysuria, dizziness, palpitations, or DENNY. Review of Systems Review of Systems: All systems reviewed & are unremarkable except as noted in HPI and below (HPI) Exam Const: General: cooperative, healthy appearing, comfortable and no acute distress Resp: Effort & Inspection: normal respiratory effort Auscultation: clear to auscultation bilaterally Cardio: Rate: regular rate GI: Inspection: non-distended and incision (LLQ percutaneous drain w/ brown fluid in bag) GI Palp: No abdominal tenderness and Yes Soft to palpation Auscultation: normal bowel sounds Skin: General skin exam: normal color Neuro: General: patient oriented x3 Extrem: General: normal to inspection Psych: Appearance: grossly normal Affect: normal affect Attitude: cooperative SYSTEMS PROGRAMMER ANALYST - PN: Obj Data Vital Signs Vital Signs: Vital Signs - 24 hr 02/12/21 11:50 02/12/21 12:10 02/12/21 12:15 Temperature 36.4 C L Pulse Rate 76 79 89 Respiratory Rate 20 18 18 Blood Pressure 111/71 111/69 112/74 Pulse Oximetry 100 99 99 02/12/21 12:20 02/12/21 12:25 02/12/21 12:30 Temperature Pulse Rate 89 88 84 Respiratory Rate 20 20 22 H Blood Pressure 112/74 110/69 109/72 Pulse Oximetry 99 98 98 02/12/21 12:35 02/12/21 12:40 02/12/21 12:45 Temperature Pulse Rate 85 82 80 Respiratory Rate 20 22 H 19 Blood Pressure 110/72 105/69 103/65 Pulse Oximetry 98 98 98 02/12/21 12:50 02/12/21 12:55 02/12/21 13:00 Temperature Pulse Rate 73 76 85 Respiratory Rate 16 16 16 Blood Pressure 107/72 109/70 108/66 Pulse Oximetry 99 99 99 02/12/21 13:06 02/12/21 16:00 02/12/21 20:00 Temperature 36.4 C 36.6 C Pulse Rate 80 82 84 Respiratory Rate 14 16 18 Blood Pressure 105/78 108/64 110/65 Pulse Oximetry 99 98 99 02/13/21 00:00 02/13/21 04:00 02/13/21 10:00 Temperature 36.1 C L 36.3 C L 36.2 C L Pulse Rate 84 87 92 Respiratory Rate 18 20 18 Blood Pressure 104/57 L 100/58 L 108/62 Pulse Oximetry 99 97 98 Intake/Output Intake/Output: Intake & Output 02/10/21 02/11/21 02/12/21 02/13/21 23:59 23:59 23:59 23:59 Intake Total 150 4430 3120 530 Output Total 350 300 400 Balance 150 4080 2820 130 Meds/Results Medications: Active Medications Generic Name Dose Route Start Last Admi
[2021-02-13 15:54] LABS: Add Urine Microscopic? YES; Appearance Urine Clear (Clear); Bilirubin Urine Negative (Negative); Blood Urine Negative (Negative); Color Urine Yellow (Yellow); Glucose Urine UA Negative (Negative); Ketones Urine Trace mg/dL (Negative); Leukocyte Esterase Ur Negative LEU/UL (Negative); Mucus Urine Few /lpf; Nitrate Urine Negative (Negative); Protein Urine Negative (Negative); RBC Urine 0-2 /hpf (0-2); Specific Grav Ur 1.017 (1.001-1.035); Squamous Epithelial Cell Urine Rare /hpf (Few); Urobilinogen Urine Negative mg/dL (<2.0); WBC Urine 0-3 /hpf
[2021-02-14 00:50] VITALS: BP 157/86; PULSE 83; RESP 18; TEMP 36.7; O2SAT 94
[2021-02-14 05:15] VITALS: BP 125/74; PULSE 77; RESP 14; TEMP 36; O2SAT 99
[2021-02-14 05:51] LABS: Eosinophils Absolute Auto 0.1 K/mm3 (0-0.3); Eosinophils Percent Auto 1.3 % (0-4.4); Hematocrit 30.7 % (37.0-47.0); Hemoglobin 10.5 g/dL (12.0-15.0); Immature Granulocyte Absolute 0.02 K/mm3 (0.00-0.031); Immature Granulocyte Percent A 0.2 % (0-0.5); Lymphocytes Absolute Auto 2.52 K/mm3 (0.9-3.2); Lymphocytes Percent Auto 29.1 % (18.3-44.2); Mean Corpuscular HGB Conc 34.2 g/dl (32-36); Mean Corpuscular Hemoglobin 28.9 pg (26-34); Mean Corpuscular Volume 84.6 fl (80-100); Mean Platelet Volume 9.4 fl (7.4-10.4); Monocytes Absolute Auto 0.4 K/mm3 (0.1-0.6); Monocytes Percent Auto 4.9 % (2.6-8.5); Neutrophils Absolute Auto 5.6 K/mm3 (1.3-6.7); Neutrophils Percent Auto 64.5 % (45.5-73.1); Platelet Count Result 322 k/mm3 (150-375); Red Blood Count 3.63 M/mm3 (4.2-5.4); Red Cell Distribution Width 12.6 % (11.5-14.5); White Blood Count 8.7 K/mm3 (4.5-10.0)
[2021-02-14 06:14] LABS: Anion Gap 8 mmol/L (8-16); Blood Urea Nitrogen 9 mg/dL (7-17); Calcium 8.7 mg/dL (8.4-10.2); Carbon Dioxide 25 mmol/L (22-30); Chloride 104 mmol/L (98-107); Estimated CRCL calculation 110 ml/min; Estimated Glomerular Filt Rate > 60; Glucose 88 mg/dL (65-110); Potassium 3.4 mmol/L (3.4-5.0); Sodium 137 mmol/L (137-145)
[2021-02-14] MEDS: DOCUSATE SODIUM 100 MG CAPSULE PO (08:33)
[2021-02-14] MEDS: metroNIDAZOLE 250 MG TABLET 500 MG PO (08:33)
[2021-02-14] MEDS: DOXYCYCLINE HYCLATE 100 MG TABLET PO (09:35)
--- NOTE | 2021-02-14 12:18 | PM.GYNPNOP ---
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 Pt counseling on drainage and keeping track of drain output. - Will continue Metronidazole 500mg BID + Doxycycline 100mg BID x 14 days (script will be sent to pharmacy) - ER return precautions. 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 Her pelvic pain is improved with the drain. She has tolerated regular diet. She is voiding, ambulating. Passing flatus; BM today. Reports that the vaginal bleeding and vaginal discharge are light. No issues w/ drain overnight; small amount of brown serous fluid and purulent drainage noted in bag. Tolerating PO antibiotics without issue. She denies fever, chills, CP, SOB, N/V, dysuria, dizziness, palpitations, or DENNY. Review of Systems Review of Systems: All systems reviewed & are unremarkable except as noted in HPI and below (HPI) Exam Const: General: cooperative, healthy appearing, comfortable and no acute distress Resp: Effort & Inspection: normal respiratory effort Auscultation: clear to auscultation bilaterally Cardio: Rate: regular rate GI: Inspection: non-distended and incision (LLQ percutaneous drain in place; small amount of brown + purulent fluid) GI Palp: No abdominal tenderness, Yes Soft to palpation and Yes Palpable mass present Auscultation: normal bowel sounds Skin: General skin exam: normal color Neuro: General: patient oriented x3 Extrem: General: normal to inspection Psych: Appearance: grossly normal Affect: normal affect Attitude: cooperative 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: Obj Data Vital Signs Vital Signs: Vital Signs - 24 hr 02/13/21 14:00 02/13/21 18:00 02/13/21 20:00 Temperature 35.9 C L 36.4 C L Pulse Rate 81 85 77 Respiratory Rate 18 18 14 Blood Pressure 108/85 104/65 Pulse Oximetry 99 98 93 02/13/21 20:53 02/14/21 00:50 02/14/21 05:15 Temperature 36.4 C 36.7 C 36.0 C L Pulse Rate 77 83 77 Respiratory Rate 14 18 14 Blood Pressure 118/73 157/86 H 125/74 Pulse Oximetry 93 94 99 Intake/Output Intake/Output: Intake & Output 02/11/21 02/12/21 02/13/21 02/14/21 23:59 23:59 23:59 23:59 Intake Total 4430 3120 1920 740 Output Total 350 300 850 0 Balance 4080 2820 1070 740 Meds/Results Medications: Active Medications Generic Name Dose Route Start Last Admin Trade Name Freq PRN Reason Stop Dose Admin Acetaminophen 650 mg 02/11/21 13:15 Acetaminophen 325 Mg Tablet PO Q4H PRN Mild Pain (1-3) or Fever Docusate Sodium 100 mg 02/11/21 09:00 02/14/21 08:33 Docusate Sodium 100 Mg Capsule PO 100 mg Q12HR VINAYAK Administration Doxycycline Hyclate 100 mg 02/14/21 10:00 02/14/21 09:35 Doxycycline Hyclate 100 Mg Tablet PO 100 mg Q12HR VINAYAK Administration Ibuprofen 800 mg 02/13/21 11:47 Ibuprofen 400 Mg Tablet PO Q8H PRN Pain Rated 4-6 Metronidazole 500 mg 02/10/21 21:00 02/14/21 08:33 Metronidazole 250 Mg Tablet PO 500 mg Q12HR VINAYAK Administration Ondansetron HCl 4 mg 02/10/21 15:36 02/10/21 20:37 Ondansetron Inj 4 Mg/2 Ml Vial IV PUSH 4 mg Q6H PRN Administration Nausea And Vomiti
--- NOTE | 2021-02-19 07:17 | PM.DS ---
DS: Admitting Diagnosis Discharge Date 02/14/21 Admitting Diagnosis - Tubo-ovarian abscess DS: Discharge Diagnosis Discharge Diagnosis (1) Tubo-ovarian abscess: Code(s): N70.93 - Salpingitis and oophoritis, unspecified Status: Acute Assessment and Plan: - s/p CT guided percutaneous drain placement by radiology DS: Summary Hospital Course Hospital Course: Armin is a 30yo P2002 who presented to the ER with pelvic pain, vaginal bleeding, and discharge. She has a h/o PID in November and was admitted for IV antibiotics at that time. She did not follow up outpatient but reports completing her antibiotics. In the ER she was afebrile, but found to have a white count of 20. WATCH MECHANIC US was performed in the ER showed left sided TOA measuring at least 5-6cm. She was admitted and started on ceftriaxone 1g IV q24hr, doxycycline 100mg IV q12h, and metronidazole 500mg PO q12hr. Radiology was consulted for possible drainage; they recommended CT scan prior to drainage. CT scan showed a left complex abscess measuring 9.5cm. Radiology was able to place a drain. Over her hospital course; she remained afebrile and her pain improved. She continued having normal BM's and voiding w/o issue and tolerated a regular diet. Her WBC trended down to 8 and remained stable for 48 hours. She was transitioned to PO antibiotics w/o issue. She was discharged home w/ the drain in place on metronidazole 500mg PO BID and doxycycline 100mg PO BID x 14 days. She is to record her drain output daily. She will follow up in clinic on 02/19/21 for possible drain removal. Status at Discharge Functional status at discharge: independent ambulation Overall status at discharge: patient is back to baseline Time Spent with Patient Time attestation: Total time spent providing and/or coordinating discharge services: Exam Const: General: cooperative, healthy appearing, comfortable and no acute distress Resp: Effort & Inspection: normal respiratory effort Auscultation: clear to auscultation bilaterally Cardio: Rate: regular rate GI: Inspection: incision (LLQ drain in place w/o signs of infection; purulent fluid in bag) GI Palp: No abdominal tenderness and Yes Soft to palpation Auscultation: normal bowel sounds Skin: General skin exam: normal color Neuro: General: patient oriented x3 Extrem: General: normal to inspection Psych: Appearance: grossly normal Affect: normal affect Attitude: cooperative Discharge Plan Discharge Attending physician on discharge: Denise Chandler Consulting providers: Ginger Sargent ; Watson Ybarra ; Tristen Valentino ; Brent Mancera Discharging Clinician: Denise Chandler Anticipated Discharge Date/Time: 02/14/21 18:00 Patient Disposition: Home, Self-Care Activity: may shower and pelvic rest Diet: regular Wound Care Instructions: keep dressing dry Discharge Instructions: empty, measure and record drainage daily Patient Instructions: Antibiotic Form Stand Alone Forms: General Discharge Information Follow-up/Referrals: Denise Chandler MD [Physician] - 1 Week Discharge Medications: New acetaminophen [Mapap (acetaminophen)] 325 mg Tablet 650 mg PO Q4H PRN (Reason: Mild Pain (1-3) Or Fever) 10 Days Qty: 60 RF: 0 ibuprofen 400 mg Tablet 800 mg PO Q8H PRN (Reason: Pain Rated 4-6) 10 Days Qty: 30 RF: 0 docusate sodium 100 mg Capsule 100 mg PO Q12HR 30 Days Qty: 60 RF: 0 doxycycline hyclate 100 mg Tablet 100 mg PO Q12HR 14 Days Qty: 28 RF: 0 metronidazole 500 mg tablet 500 mg PO Q12HR 14 Days Qty: 28 RF: 0 oxycodone-acetaminophen 5-325 mg Tablet 1 tablet PO Q6H PRN (Reason: Pain Rated 7-10) 3 Days Qty: 12 RF: 0 Continued venlafaxine 75 mg tablet 75 mg PO BID Qty: 90 RF: 0 Discontinued doxycycline hyclate 100 mg capsule 100 mg PO DAILY Qty: 20 RF: 0 metronidazole 500 mg tablet 500 mg PO TID Qty: 30 RF: 0 Date of admission: 02/10/21 13:15
== END 2021-02-14 12:47 | disposition home or self-care (01) | DRG 531 ==
LOC: ANHED 13:21 → ANH2MED 13:48
PROVIDERS: Physician Assistant; Radiology Diagnostic Radiology; Admitting Provider Obstetrics & Gynecology; Emergency Provider Emergency Medicine; PCP Nurse Practitioner Family; Visit Provider Obstetrics & Gynecology
PROC: 0U9130Z Drainage of Left Ovary with Drainage Device, Percutaneous Approach (ICD-10-PCS; principal; 2021-02-12 11:30)
DX: N70.93 Salpingitis and oophoritis, unspecified (principal); F17.210 Nicotine dependence, cigarettes, uncomplicated
CPT/HCPCS: 36415; 74177; 75989; 76830; 76856; 80048; 80053; 81001; 81025; 83690; 85025; 85610; 87070; 87075; 87086; 87088; 87205; 87491; 87591; 87808; 99285; A9270; C1729; C1769; J0696; J1885; J2270; J2405; J7040; J7120; Q9967

== ENCOUNTER 2022-04-09 10:22 | Outpatient (CLI) | payer OTHER, SELFPAY ==
--- NOTE | ~2022-04-09 | US_ITS ---
Pelvic ultrasound. Clinical History: Pelvic/perineal pain Technique: Realtime transabdominal and transvaginal scanning of the pelvis was performed. Color flow Doppler and Doppler spectral analysis were performed. Findings: The uterus is anteverted. The endometrial stripe has a thickness of 3 mm. No myometrial fo romaine mass is identified. Cervical nabothian cyst present. The right ovary measures 3.1 x 1.8 x 1.7 cm. There is a probable cystic mass versus free fluid in the right adnexal region. The fluid collection measures up at least 7 cm in maximum diameter.. The left ovary measures 2.7 x 1.7 x 1.3 cm. No significant left ovarian or adnexal mass is seen. Vascular flow present in both ovaries on Doppler spectral analysis. There is no evidence of free fluid in the cul de sac. Impression: Cystic mass versus free fluid in the right adnexal region, ranging up to at least 7 cm in maximum mook meter. Consider hydrosalpinx, peritoneal inclusion cyst, versus other cystic lesion versus possibly l oculated free fluid. Correlate for signs/symptoms of infection. Reviewed, dictated and finalized at [facility]. [employer]IENCE [employer]AD Impression: Cystic mass versus free fluid in the right adnexal region, ranging up to at [address] 7 cm in maximum diameter. Consider hydrosalpinx, peritoneal inclusion cyst, versus other cystic lesion versus possibly loculated free fluid. Correlate for signs/symptoms of infection.
[2022-04-09 12:29] LABS: Basophils Percent Auto 0.1 % (0.2-1.2); Eosinophils Percent Auto 0.3 % (0-4.4); Hematocrit 39.7 % (37.0-47.0); Hemoglobin 13.4 g/dL (12.0-15.0); Immature Granulocyte Absolute 0.02 K/mm3 (0.00-0.031); Immature Granulocyte Percent A 0.2 % (0-0.5); Lymphocytes Absolute Auto 2.93 K/mm3 (0.9-3.2); Lymphocytes Percent Auto 33.8 % (18.3-44.2); Mean Corpuscular HGB Conc 33.8 g/dl (32-36); Mean Corpuscular Hemoglobin 29.9 pg (26-34); Mean Corpuscular Volume 88.6 fl (80-100); Mean Platelet Volume 10.4 fl (7.4-10.4); Monocytes Absolute Auto 0.4 K/mm3 (0.1-0.6); Monocytes Percent Auto 4.1 % (2.6-8.5); Neutrophils Absolute Auto 5.3 K/mm3 (1.3-6.7); Neutrophils Percent Auto 61.5 % (45.5-73.1); Platelet Count Result 235 k/mm3 (150-375); Red Blood Count 4.48 M/mm3 (4.2-5.4); Red Cell Distribution Width 13.3 % (11.5-14.5); White Blood Count 8.7 K/mm3 (4.5-10.0)
[2022-04-09 12:45] LABS: Alanine Aminotransferase 17 U/L (6-35); Albumin Level 4.1 g/dL (3.5-5.1); Alkaline Phosphatase 63 U/L (38-126); Anion Gap 4 mmol/L (8-16); Aspartate Amino Transferase 20 U/L (14-36); Bilirubin,Total 0.4 mg/dL (0.2-1.3); Blood Urea Nitrogen 10 mg/dL (7-17); Calcium 8.6 mg/dL (8.4-10.2); Carbon Dioxide 25 mmol/L (22-30); Chloride 106 mmol/L (98-107); Estimated Glomerular Filt Rate > 60; Glucose 85 mg/dL (65-110); Potassium 3.9 mmol/L (3.4-5.0); Sodium 135 mmol/L (137-145)
== END 2022-04-09 10:23 | disposition home or self-care (01) ==
LOC: ANHIMG 10:24
PROVIDERS: PCP Nurse Practitioner Family; Visit Provider Obstetrics & Gynecology
DX: R10.2 Pelvic and perineal pain (principal); R93.89 Abnormal findings on diagnostic imaging of other specified body structures
CPT/HCPCS: 36415; 76830; 76856; 80053; 85025